=== PATIENT | male | born 1955 | race Caucasian/White ===

== ENCOUNTER 2017-04-16 19:51 | Inpatient (IN) | payer MEDICARE ==
[~2017-04-16] VITALS: Ht 172.7 cm; Wt 68.0 kg
[2017-04-16 20:01] VITALS: BP 147/97
[2017-04-16 20:17] LABS: BASOPHILS % (AUTO) 0.5 % (0.0-2.0); EOSINOPHILS % (AUTO) 0.1 % (0.0-3.0); MEAN CORPUSCULAR HEMOGLOBIN 29.8 PG (27.0-31.0); MEAN CORPUSCULAR HGB CONC 31.6 G/DL (32.0-36.0); MEAN CORPUSCULAR VOLUME 94 FL (80-99); MEAN PLATELET VOLUME 5.8 FL (6.5-10.1); MONOCYTES % (AUTO) 7.1 % (1.0-10.0); NEUTROPHILS % (AUTO) 71.3 % (45.0-75.0); PLATELET COUNT 283 K/UL (150-450); RED BLOOD COUNT 4.12 M/UL (4.70-6.10); RED CELL DISTRIBUTION WIDTH 13.4 % (11.6-14.8); WHITE BLOOD COUNT 8.1 K/UL (4.8-10.8)
[2017-04-16 20:26] LABS: ANION GAP 11 mmol/L (5-15); CALCIUM 8.8 MG/DL (8.5-10.1); CARBON DIOXIDE 26 MMOL/L (21-32); CHLORIDE 97 MMOL/L (98-107); CREATININE 0.8 MG/DL (0.55-1.30); GLOMERULAR FILTRATION RATE > 60 mL/min (>60); INR 0.9 (0.9-1.1); POTASSIUM 3.9 MMOL/L (3.5-5.1); PROTHROMBIN TIME 9.6 SEC (9.30-11.50); SODIUM 134 MMOL/L (136-145)
[2017-04-16 20:40] LABS: ALANINE AMINOTRANSFERASE 29 U/L (12-78); ALBUMIN/GLOBULIN RATIO 1.2 (1.0-2.7); ASPARTATE AMINO TRANSFERASE 18 U/L (15-37); CKMB 0.5 NG/ML (0.0-3.6); TOTAL PROTEIN 6.9 G/DL (6.4-8.2)
[2017-04-16] MEDS ORDERED: Acetaminophen 500mg (ES) tab ORAL ONE (21:15)
[2017-04-16] MEDS ORDERED: Albuterol/Ipratropium 3ml neb HHN ONE (21:30)
--- NOTE | 2017-04-16 21:40 | Emergency Room Report ---
History of Present Illness General Chief Complaint: Chest Pain Source: Patient, EMS Present Illness HPI Patient is a 61-year-old male brought in by EMS after increased chest pain. Patient had gradual onset of symptoms. The patient onset of pain approximately 10-20 minutes prior to arrival. The patient reports having prior history of cardiac disease and states that he's had multiple stents placed in the past. He has prior history of COPD. Patient recently been hospitalized at [facility]. Patient was given aspirin as well as nitroglycerin by paramedics with improvement in his pain. Allergies: Coded Allergies: PENICILLINS (Verified Allergy, Unknown, 04/16/17) TRAMADOL (Verified Allergy, Unknown, 04/16/17) Patient History Past Medical History: see triage record Reviewed Nursing Documentation: PMH: Agreed, PSxH: Agreed Review of Systems All Other Systems: negative except mentioned in HPI Physical Exam Vital Signs Date Time Temp Pulse Resp B/P (MAP) Pulse Ox O2 Delivery O2 Flow Rate FiO2 04/16/17 19:49 98.1 73 12 147/97 97 Room Air 04/16/17 21:33 21 Sp02 EP Interpretation: reviewed, normal General Appearance: normal inspection, well appearing, no apparent distress, alert, GCS 15, non-toxic Head: atraumatic ENT: normal ENT inspection, hearing grossly normal, normal voice Neck: normal inspection, full range of motion, supple, no bony tend Respiratory: normal inspection, lungs clear, normal breath sounds, no respiratory distress, no retraction, no wheezing Cardiovascular #1: regular rate, rhythm, no edema Gastrointestinal: normal inspection, normal bowel sounds, non tender, soft, no guarding, no hernia Genitourinary: no CVA tenderness Musculoskeletal: normal inspection, back normal, normal range of motion Neurologic: normal inspection, alert, oriented x3, responsive, facility mechanic III-XII nml as tested, speech normal Psychiatric: normal inspection, judgement/insight normal, mood/affect normal Skin: normal inspection, normal color, no rash Medical Decision Making Diagnostic Impression: Primary Impression: Chest pain Additional Impressions: CAD (coronary artery disease) COPD (chronic obstructive pulmonary disease) ER Course Patient presented for chest pain. Differential diagnosis included but was not limited to acute coronary syndrome, pulmonary embolism, pneumonia, aortic dissection, shingles, pneumothorax, aortic dissection, esophageal rupture, pericarditis. Because of complexity of patient's case laboratory testing and imaging studies were ordered. EKG interpreted by me showed normal sinus rhythm 76 with multiple PAC. Patient was given Plavix, he is given nitroglycerin and an aspirin by paramedics. The patient has multiple risk factors for cardiac disease including smoking as well as prior coronary artery disease. The patient was discussed with Dr. Zackary Corona for panel admission. Labs Test 04/16/17 20:00 White Blood Count 8.1 K/UL (4.8-10.8) Red Blood Count 4.12 M/UL (4.70-6.10) Hemoglobin 12.3 G/DL (14.2-18.0) Hematocrit 38.8 % (42.0-52.0) Mean Corpuscular Volume 94 FL (80-99) Mean Corpuscular Hemoglobin 29.8 PG (27.0-31.0) Mean Corpuscular Hemoglobin Concent 31.6 G/DL (32.0-36.0) Red Cell Distribution Width 13.4 % (11.6-14.8) Platelet Count 283 K/UL (150-450) Mean Platelet Volume 5.8 FL (6.5-10.1) Neutrophils (%) (Auto) 71.3 % (45.0-75.0) Lymphocytes (%) (Auto) 21.0 % (20.0-45.0) Monocytes (%) (Auto) 7.1 % (1.0-10.0) Eosinophils (%) (Auto) 0.1 % (0.0-3.0) Basophils (%) (Auto) 0.5 % (0.0-2.0) Prothrombin Time 9.6 SEC (9.30-11.50) Prothromb Time International Ratio 0.9 (0.9-1.1) Activated Partial Thromboplast Time 26 SEC (23-33) D-Dimer 0.35 mg/L FEU (0.00-0.49) Sodium Level 134 MMOL/L (136-145) Potassium Level 3.9 MMOL/L (3.5-5.1) Chloride Level 97 MMOL/L (98-107) Carbon Dioxide Level 26 MMOL/L (21-32) Anion Gap 11 mmol/L (5-15) Blood Urea Nitrogen 12 mg/dL (7-18) Creatinine 0.8 MG/DL (0.55-1.30) Estimat Glomerular Filtration Rate > 60 mL/min (>60) Glucose Level 119 MG/DL (74-106) Calcium Level 8.8 MG/DL (8.5-10.1) Total Bilirubin 0.4 MG/DL (0.2-1.0) Aspartate Amino Transf (AST/SGOT) 18 U/L (15-37) Alanine Aminotransferase (ALT/SGPT) 29 U/L (12-78) Alkaline Phosphatase 55 U/L (46-116) Total Creatine Kinase 44 U/L (26-308) Creatine Kinase MB 0.5 NG/ML (0.0-3.6) Creatine Kinase MB Relative Index 1.1 Troponin I 0.000 ng/mL (0.000-0.056) Pro-B-Type Natriuretic Peptide 242 pg/mL (0-125) Total Protein 6.9 G/DL (6.4-8.2) Albumin 3.7 G/DL (3.4-5.0) Globulin 3.2 g/dL Albumin/Globulin Ratio 1.2 (1.0-2.7) EKG Diagnostic Results Rate: normal Rhythm: NSR ST Segments: no acute changes Chest X-Ray Diagnostic Results Chest X-Ray Diagnostic Results : Chest X-Ray Ordered: Yes # of Views/Limited/Complete: 1 View Indication: Chest Pain EP Interpretation: Yes PA Xray: Interpretation reviewed, by supervising MD Interpretation: no consolidation Impression: No acute disease Electronically Signed by: Electronically signed by Dr. Ambrose Castrejon M.D. Last Vital Signs Date Time Temp Pulse Resp B/P (MAP) Pulse Ox O2 Delivery O2 Flow Rate FiO2 04/16/17 21:33 77 24 Room Air 21 04/16/17 21:33 99 04/16/17 20:01 98.1 147/97 Status: unchanged Disposition: ADMITTED INPATIENT Condition: Serious Referrals: NOT CHOSEN IPA/,REFERRING (PCP) Ambrose Castrejon Apr 16, 2017 21:40
[2017-04-16] MEDS ORDERED: SERTRALINE HCL25 MG ORAL (22:19)
[2017-04-16] MEDS ORDERED: OMEPRAZOLE20 M3 ORAL (22:19)
[2017-04-16] MEDS ORDERED: IBUPROFEN600 MG ORAL (22:19)
[2017-04-16] MEDS ORDERED: PREDNISONE20 MG ORAL (22:26)
[2017-04-16] MEDS ORDERED: NORVASC5 MG ORAL (22:26)
[2017-04-16] MEDS ORDERED: METOPROLOL SUCC25 MG ORAL (22:26)
[2017-04-16] MEDS ORDERED: TRAZODONE HCL150 MG ORAL (22:26)
[2017-04-16] MEDS ORDERED: LIPITOR80 MG ORAL (22:26)
[2017-04-16] MEDS ORDERED: ALBUTEROL SULF8.5 GM INH (22:26)
[2017-04-16] MEDS ORDERED: NITROGLYCERIN0.4 MG SL (22:26)
[2017-04-16] MEDS ORDERED: LORATADINE10 M3 PO (22:26)
[2017-04-16] MEDS ORDERED: ACETAMINOPHEN325 M1 ORAL (22:26)
[2017-04-16] MEDS ORDERED: ASPIRIN81 MG ORAL (22:26)
[2017-04-16] MEDS ORDERED: ISOSORBIDE MONO20 MG PO (22:26)
[2017-04-16] MEDS ORDERED: RANEXA500 MG ORAL (22:26)
[2017-04-16 22:30] VITALS: BP 134/83
[2017-04-16] MEDS ORDERED: CYANOCOBALAMIN5 GM MC (22:36)
[2017-04-16] MEDS ORDERED: ADVAIR 250-501 EACH INH (22:36)
[2017-04-16] MEDS ORDERED: METHOCARBAMOL500 MG ORAL (22:36)
[2017-04-16] MEDS ORDERED: AZITHROMYC200 MG/5 M ORAL (22:36)
[2017-04-16] MEDS ORDERED: SYMBICORT 80-10.2 G1 IH (22:36)
[2017-04-16] MEDS ORDERED: ANECREAM5 GM TP (22:36)
[2017-04-16 23:13] VITALS: BP 148/93
[2017-04-17] VITALS: BP_SYST 134; BP_SYST 145; BP_DIAS 102
[2017-04-17 04:00] VITALS: BP 141/87
[2017-04-17] MEDS ORDERED: dilTIAZem HCl 25mg/5ml Inj IV PRN (05:45)
[2017-04-17] MEDS ORDERED: Enalaprilat 2.5mg/2ml Inj IV PRN (05:45)
[2017-04-17] MEDS ORDERED: Albuterol/Ipratropium 3ml neb HHN PRN (05:45)
[2017-04-17] MEDS ORDERED: Ketorolac 30mg Inj IV PRN (05:45)
[2017-04-17] MEDS ORDERED: Miralax 17gm pkt ORAL PRN (05:45)
--- NOTE | 2017-04-17 07:28 | Consultation ---
History of Present Illness General Date patient seen: Apr 17, 2017 Chief Complaint: Chest Pain Reason for Consultation: inpatient management Present Illness HPI 61-year-old male with hx of COPD HTN, CAD, stented CAD in [facility], brought in by EMS after increased chest pain with gradual onset of symptoms. Patient recently been hospitalized at [facility]. He given aspirin as well as nitroglycerin by paramedics with improvement in his pain. He is admitted to telemetry for ACS. Allergies: Coded Allergies: PENICILLINS (Verified Allergy, Unknown, 04/16/17) TRAMADOL (Verified Allergy, Unknown, 04/16/17) Medication History Scheduled Albuterol Sulfate* (Albuterol Sulfate Mdi*), 2 PUFF INH Q3H, (Reported) Amlodipine Besylate (Norvasc), 5 MG ORAL DAILY, (Reported) Aspirin* (Aspirin*), 81 MG ORAL DAILY, (Reported) Atorvastatin (Lipitor), 40 MG ORAL BEDTIME, (Reported) Azithromycin* (Azithromycin*), 250 MG ORAL DAILY, (Reported) Fluticasone/Salmeterol (Advair 250-50 Diskus), 1 PUFF INH EVERY 12 HOURS, ( Reported) Metoprolol Succinate* (Metoprolol Succinate*), 25 MG ORAL DAILY, (Reported) Omeprazole (Omeprazole), 20 MG ORAL DAILY, (Reported) Prednisone* (Prednisone*), 20 MG ORAL DAILY, (Reported) Ranolazine* (Ranexa*), 500 MG ORAL EVERY 12 HOURS, (Reported) Sertraline Hcl* (Sertraline Hcl*), 100 MG ORAL DAILY, (Reported) Trazodone* (Trazodone*), 100 MG ORAL BEDTIME, (Reported) Scheduled PRN Acetaminophen* (Acetaminophen 325MG Tablet*), 325 MG ORAL Q4H PRN for For Pain, (Reported) Ibuprofen* (Motrin*), 800 MG ORAL Q8H PRN for For Pain, (Reported) Methocarbamol* (Methocarbamol*), 500 MG ORAL TID PRN for For Pain, (Reported) Miscellaneous Medications Budesonide/Formoterol Fumarate (Symbicort 80-4.5 Mcg Inhaler), 1 PUFF IH, ( Reported) Cyanocobalamin (Vitamin B-12) (Cyanocobalamin), 5 GM MC, (Reported) Isosorbide Mononitrate (Isosorbide Mononitrate), 60 MG PO, (Reported) Lidocaine (Anecream), 5 GM TP, (Reported) Loratadine (Loratadine), 10 MG PO, (Reported) Nitroglycerin (Nitroglycerin), 0.4 MG SL, (Reported) Patient History Healthcare decision maker Resuscitation status Full Code Advanced Directive on File Past Medical/Surgical History Past Medical/Surgical History: (1) Stented coronary artery (2) COPD (chronic obstructive pulmonary disease) (3) CAD (coronary artery disease) Review of Systems Cardiovascular: Reports: chest pain Physical Exam General Appearance: WD/WN, mild distress Lines, tubes and drains: peripheral HEENT: normocephalic, atraumatic Neck: non-tender, normal alignment Respiratory/Chest: chest wall non-tender, lungs clear Cardiovascular/Chest: normal peripheral pulses, normal rate, regular rhythm Abdomen: normal bowel sounds, non tender Genitourinary/Rectal: normal genital exam Extremities: normal range of motion Last 24 Hour Vital Signs Date Time Temp Pulse Resp B/P (MAP) Pulse Ox O2 Delivery O2 Flow Rate FiO2 04/17/17 05:01 67 04/17/17 04:00 97.7 67 20 141/87 97 Room Air 21 04/17/17 00:00 97.7 60 20 145/102 96 Room Air 04/17/17 00:00 71 04/17/17 00:00 97.2 61 20 134/102 97 Room Air 04/16/17 23:30 98.1 75 24 148/93 99 Room Air 21 75 04/16/17 23:13 98.1 75 24 148/93 99 Room Air 21 75 04/16/17 22:30 98.2 69 19 134/83 96 Room Air 21 04/16/17 22:13 98.1 04/16/17 21:46 72 20 100 Room Air 21 04/16/17 21:33 77 24 Room Air 21 04/16/17 21:33 77 24 99 Room Air 21 04/16/17 20:02 75 26 Room Air 04/16/17 20:01 98.1 75 12 147/97 97 Room Air 04/16/17 19:49 98.1 73 12 147/97 97 Room Air Laboratory Tests Test 04/16/17 20:00 04/16/17 22:00 White Blood Count 8.1 K/UL (4.8-10.8) Red Blood Count 4.12 M/UL (4.70-6.10) L Hemoglobin 12.3 G/DL (14.2-18.0) L Hematocrit 38.8 % (42.0-52.0) L Mean Corpuscular Volume 94 FL (80-99) Mean Corpuscular Hemoglobin 29.8 PG (27.0-31.0) Mean Corpuscular Hemoglobin Concent 31.6 G/DL (32.0-36.0) L Red Cell Distribution Width 13.4 % (11.6-14.8) Platelet Count 283 K/UL (150-450) Mean Platelet Volume 5.8 FL (6.5-10.1) L Neutrophils (%) (Auto) 71.3 % (45.0-75.0) Lymphocytes (%) (Auto) 21.0 % (20.0-45.0) Monocytes (%) (Auto) 7.1 % (1.0-10.0) Eosinophils (%) (Auto) 0.1 % (0.0-3.0) Basophils (%) (Auto) 0.5 % (0.0-2.0) Prothrombin Time 9.6 SEC (9.30-11.50) Prothromb Time International Ratio 0.9 (0.9-1.1) Activated Partial Thromboplast Time 26 SEC (23-33) D-Dimer 0.35 mg/L FEU (0.00-0.49) Sodium Level 134 MMOL/L (136-145) L Potassium Level 3.9 MMOL/L (3.5-5.1) Chloride Level 97 MMOL/L (98-107) L Carbon Dioxide Level 26 MMOL/L (21-32) Anion Gap 11 mmol/L (5-15) Blood Urea Nitrogen 12 mg/dL (7-18) Creatinine 0.8 MG/DL (0.55-1.30) Estimat Glomerular Filtration Rate > 60 mL/min (>60) Glucose Level 119 MG/DL (74-106) H Calcium Level 8.8 MG/DL (8.5-10.1) Total Bilirubin 0.4 MG/DL (0.2-1.0) Aspartate Amino Transf (AST/SGOT) 18 U/L (15-37) Alanine Aminotransferase (ALT/SGPT) 29 U/L (12-78) Alkaline Phosphatase 55 U/L (46-116) Total Creatine Kinase 44 U/L (26-308) Creatine Kinase MB 0.5 NG/ML (0.0-3.6) Creatine Kinase MB Relative Index 1.1 Troponin I 0.000 ng/mL (0.000-0.056) 0.009 ng/mL (0.000-0.056) Pro-B-Type Natriuretic Peptide 242 pg/mL (0-125) H Total Protein 6.9 G/DL (6.4-8.2) Albumin 3.7 G/DL (3.4-5.0) Globulin 3.2 g/dL Albumin/Globulin Ratio 1.2 (1.0-2.7) Height (Feet): 5 Height (Inches): 8.00 Weight (Pounds): 150 Medications Current Medications Medications (Trade) Dose Ordered Sig/Jacinto Route PRN Reason Start Time Stop Time Status Last Admin Dose Admin Acetaminophen (Tylenol) 650 mg Q4H PRN ORAL FEVER 04/17/17 05:45 05/17/17 05:44 Albuterol/ Ipratropium (Albuterol/ Ipratropium) 3 ml EVERY 4 HOURS PRN HHN Shortness of Breath 04/17/17 05:45 04/22/17 05:44 Amlodipine Besylate (Norvasc) 5 mg DAILY ORAL 04/17/17 09:00 05/17/17 08:59 Aspirin (ASA) 162 mg DAILY ORAL 04/17/17 09:00 05/17/17 08:59 Atorvastatin Calcium (Lipitor) 40 mg BEDTIME ORAL 04/17/17 21:00 05/17/17 20:59 Diltiazem HCl (Cardizem) 10 mg EVERY HOUR PRN IV heart rate more than 120, 04/17/17 05:45 05/17/17 05:44 Enalaprilat (Vasotec) 2.5 mg EVERY 6 HOURS PRN IV sbp more than 160 04/17/17 05:45 05/17/17 05:44 Heparin Sodium (Porcine) (Heparin 5000 units/ml) 5,000 units EVERY 12 HOURS SUBQ 04/17/17 09:00 05/17/17 08:59 Ketorolac Tromethamine (Toradol 30mg) 30 mg Q6HR PRN IV moderate pain ( 4-6) 04/17/17 05:45 04/22/17 05:44 UNV Metoprolol Succinate (Toprol XL) 25 mg DAILY ORAL 04/17/17 09:00 05/17/17 08:59 Nitroglycerin (Ntg) 0.4 mg Every 5 Minutes PRN SL Prn Chest Pain 04/17/17 05:45 05/17/17 05:44 Ondansetron HCl (Zofran) 4 mg Q6H PRN IVP Nausea & Vomiting 04/17/17 05:45 05/17/17 05:44 Polyethylene Glycol (Miralax) 17 gm DAILYPRN PRN ORAL Constipation 04/17/17 05:45 05/17/17 05:44 Sertraline HCl (Zoloft) 100 mg DAILY ORAL 04/17/17 09:00 05/17/17 08:59 Temazepam (Restoril) 15 mg HSPRN PRN ORAL Insomnia 04/17/17 05:45 04/24/17 05:44 Trazodone HCl (Desyrel) 100 mg BEDTIME ORAL 04/17/17 21:00 05/17/17 20:59 Assessment/Plan Problem List: (1) ACS (acute coronary syndrome) ICD Codes: I24.9 - Acute ischemic heart disease, unspecified SNOMED: 579935969 (2) CAD (coronary artery disease) ICD Codes: I25.10 - Atherosclerotic heart disease of [place] coronary artery without angina pectoris SNOMED: 31316144 (3) COPD (chronic obstructive pulmonary disease) ICD Codes: J44.9 - Chronic obstructive pulmonary disease, unspecified SNOMED: 85588064 (4) Stented coronary artery ICD Codes: Z95.5 - Presence of coronary angioplasty implant and graft SNOMED: 67063565, 243080424 Assessment/Plan serial ekg, troponin, Echo cardio to see respiratory treatment for COPD Monitor BP BROCK NICHOLS Apr 17, 2017 07:28
[2017-04-17 08:00] VITALS: BP 157/100
[2017-04-17] MEDS ORDERED: Aspirin Baby 81mg ORAL SCH (09:00)
[2017-04-17] MEDS ORDERED: Metoprolol Succinate XL 25mg tab ORAL SCH (09:00)
--- NOTE | 2017-04-17 09:30 | Diagnostic Imaging Report ---
Indication: Shortness of breath Comparison: None Findings: Single view of the chest shows a normal cardiomediastinal silhouette. Pulmonary vasculature is normal. Lung are clear. Soft tissues and osseous structures are within normal limits. Impression: No acute chest disease
[2017-04-17] MEDS: Sertraline 50mg tab ORAL SCH (09:51)
[2017-04-17] MEDS: Heparin 5000 units/ml inj SUBQ SCH ×2 (09:53→19:57)
[2017-04-17] MEDS: Norco 5mg/325mg tab ORAL PRN ×2 (11:09→19:55)
[2017-04-17 12:00] VITALS: BP 135/93
--- NOTE | 2017-04-17 13:58 | General Progress Note ---
Progress Note Progress Note [id number] full note dictated ISIDRA CARLOS Apr 17, 2017 13:58
--- NOTE | 2017-04-17 14:46 | Cardiology Progress Note ---
Assessment/Plan Assessment/Plan The patient is seen and examined, full consult note is dictated. Objective Last 24 Hour Vital Signs Date Time Temp Pulse Resp B/P (MAP) Pulse Ox O2 Delivery O2 Flow Rate FiO2 04/17/17 12:08 97.5 04/17/17 12:00 97.9 79 20 135/93 96 Room Air 04/17/17 11:53 72 04/17/17 09:51 79 157/100 04/17/17 09:50 79 157/100 04/17/17 08:05 80 04/17/17 08:00 97.5 79 20 157/100 98 Room Air 04/17/17 05:01 67 04/17/17 04:00 97.7 67 20 141/87 97 Room Air 21 04/17/17 00:00 97.7 60 20 145/102 96 Room Air 04/17/17 00:00 71 04/17/17 00:00 97.2 61 20 134/102 97 Room Air 04/16/17 23:30 98.1 75 24 148/93 99 Room Air 21 75 04/16/17 23:13 98.1 75 24 148/93 99 Room Air 21 75 04/16/17 22:30 98.2 69 19 134/83 96 Room Air 21 04/16/17 22:13 98.1 04/16/17 21:46 72 20 100 Room Air 21 04/16/17 21:33 77 24 Room Air 21 04/16/17 21:33 77 24 99 Room Air 21 04/16/17 20:02 75 26 Room Air 04/16/17 20:01 98.1 75 12 147/97 97 Room Air 04/16/17 19:49 98.1 73 12 147/97 97 Room Air Laboratory Tests Test 04/16/17 20:00 04/16/17 22:00 04/17/17 08:55 White Blood Count 8.1 K/UL (4.8-10.8) Red Blood Count 4.12 M/UL (4.70-6.10) L Hemoglobin 12.3 G/DL (14.2-18.0) L Hematocrit 38.8 % (42.0-52.0) L Mean Corpuscular Volume 94 FL (80-99) Mean Corpuscular Hemoglobin 29.8 PG (27.0-31.0) Mean Corpuscular Hemoglobin Concent 31.6 G/DL (32.0-36.0) L Red Cell Distribution Width 13.4 % (11.6-14.8) Platelet Count 283 K/UL (150-450) Mean Platelet Volume 5.8 FL (6.5-10.1) L Neutrophils (%) (Auto) 71.3 % (45.0-75.0) Lymphocytes (%) (Auto) 21.0 % (20.0-45.0) Monocytes (%) (Auto) 7.1 % (1.0-10.0) Eosinophils (%) (Auto) 0.1 % (0.0-3.0) Basophils (%) (Auto) 0.5 % (0.0-2.0) Prothrombin Time 9.6 SEC (9.30-11.50) Prothromb Time International Ratio 0.9 (0.9-1.1) Activated Partial Thromboplast Time 26 SEC (23-33) D-Dimer 0.35 mg/L FEU (0.00-0.49) Sodium Level 134 MMOL/L (136-145) L Potassium Level 3.9 MMOL/L (3.5-5.1) Chloride Level 97 MMOL/L (98-107) L Carbon Dioxide Level 26 MMOL/L (21-32) Anion Gap 11 mmol/L (5-15) Blood Urea Nitrogen 12 mg/dL (7-18) Creatinine 0.8 MG/DL (0.55-1.30) Estimat Glomerular Filtration Rate > 60 mL/min (>60) Glucose Level 119 MG/DL (74-106) H Calcium Level 8.8 MG/DL (8.5-10.1) Total Bilirubin 0.4 MG/DL (0.2-1.0) Aspartate Amino Transf (AST/SGOT) 18 U/L (15-37) Alanine Aminotransferase (ALT/SGPT) 29 U/L (12-78) Alkaline Phosphatase 55 U/L (46-116) Total Creatine Kinase 44 U/L (26-308) Creatine Kinase MB 0.5 NG/ML (0.0-3.6) Creatine Kinase MB Relative Index 1.1 Troponin I 0.000 ng/mL (0.000-0.056) 0.009 ng/mL (0.000-0.056) 0.010 ng/mL (0.000-0.056) Pro-B-Type Natriuretic Peptide 242 pg/mL (0-125) H Total Protein 6.9 G/DL (6.4-8.2) Albumin 3.7 G/DL (3.4-5.0) Globulin 3.2 g/dL Albumin/Globulin Ratio 1.2 (1.0-2.7) RUBEN VEGA Apr 17, 2017 14:46
[2017-04-17 16:00] VITALS: BP 139/86
[2017-04-17] MEDS ORDERED: Flu Vaccine Quadrivalent 0.5ml IM ONE (16:30)
[2017-04-17] MEDS ORDERED: Pneumococcal Vaccine 25mcg/0.5ml IM ONE (16:30)
[2017-04-17 18:16] LABS: APPEARANCE,URINE CLEAR; KETONES,URINE NEGATIVE (NEGATIVE); LEUKOCYTE ESTERASE ,URINE NEGATIVE (NEGATIVE); NITRITE,URINE NEGATIVE (NEGATIVE); PH,URINE 7 (4.5-8.0); PROTEIN,URINE NEGATIVE (NEGATIVE); UROBILINOGEN,URINE NORMAL MG/DL (0.0-1.0)
[2017-04-17 18:26] LABS: RBC,URINE 0 /HPF (0 - 0); WBC,URINE 0-2 /HPF (0 - 0)
--- NOTE | 2017-04-17 19:45 | History and Physical Report ---
DATE OF ADMISSION: 04/16/2017 TIME SEEN: At 8 a.m. CONSULTANTS: 1. Zackary Corona D.O. 2. Bridgett Alonso M.D. 3. Tony Clarke M.D. CHIEF COMPLAINT: Chest pain and shortness of breath. BRIEF HISTORY: A 61-year-old male vising from [place]. Per family history, he has some chest pressure with little bit dizzy/short of breath. The patient came in with substernal chest pain came to [place] ER diagnosed with above ACS and chest pain status post stent and was admitted to telemetry for further care. Currently, calm and feeling little better/short of breath. No complaints. PAST MEDICAL HISTORY: Include hypertension, emphysema, and ruptured disk in lumbar. PAST SURGICAL HISTORY: Stent x10. MEDICATIONS: Include Lipitor, Desyrel, Norvasc, Toprol, Zoloft, aspirin, albuterol, nitroglycerin, Toradol, MiraLAX, and Zofran. ALLERGIES: Penicillin and tramadol. SOCIAL HISTORY: Positive for smoke. Occasional alcohol. No intravenous drug abuse. FAMILY HISTORY: Noncontributory. REVIEW OF SYSTEMS: Chest pain and short of breath. No nausea, vomiting, or diarrhea. PHYSICAL EXAMINATION: GENERAL: Calm in bed, oriented x3, in no acute distress. VITAL SIGNS: Show temperature is 97 degrees, pulse 67, respirations 20, and blood pressure 141/87. CARDIOVASCULAR: No murmur. LUNGS: Distant and clear. ABDOMEN: Bowel sounds are positive. Nontender and nondistended. EXTREMITIES: No cyanosis, clubbing, or edema. NEUROLOGICAL: The patient moves all extremities but slightly weak. LABORATORY DATA: Show hemoglobin 12.3, otherwise CBC is normal. BMP show sodium 134, chloride 97, and glucose 119. BNP is 242. INR is 3.9. PTT is 26. ASSESSMENT: 1. Chest pain. 2. Acute coronary syndrome status post stent. 3. Hyponatremia. 4. Anemia. 5. Hypertension. 6. Emphysema. PLAN: 1. Continue premedications. 2. OT, PT, and dietary evaluation. 3. Troponin q.8 x3. 4. EKG. 5. Pain control. 6. Resume home medications. 7. Blood pressure control. 8. Dr. Alonso, Dr. Clarke and Dr. Simeon to consult. Zackary Corona D.O. DR: JENNIFER JOB#: [id number] CC:
[2017-04-17] MEDS: Atorvastatin 80mg tab ORAL SCH (19:54)
[2017-04-17] MEDS: TraZODone 100mg tab ORAL SCH (19:54)
[2017-04-17 20:06] VITALS: BP 140/82
--- NOTE | 2017-04-18 | Consultation ---
DATE OF CONSULTATION: 04/17/2017 NEPHROLOGY CONSULTATION CONSULTING PHYSICIAN: Flavia Simeon M.D. REFERRING PHYSICIAN: Zackary Corona D.O. ATTENDING PHYSICIAN: Zackary Corona D.O. REASON FOR CONSULTATION: Hyponatremia. HISTORY OF PRESENT ILLNESS: The patient is an unfortunate 61-year-old male with past medical history significant for history of hypertension and history of CAD. Apparently, per patient, the patient has 11 stents in his heart. His first heart attack was in 1984. Apparently, the patient coded twice then and got to survive. 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 He was about I think 2 months ago at [place], [place]. He had chest pain and he had an another cardiac intervention. He moved to [place] and apparently 2 weeks ago was admitted in [facility] with chest pain, for which then he was given nitroglycerin and had a stress test, which was negative. The patient consequently was sent home, but apparently the patient had another episode of chest pain while he was drinking coffee in [facility]. He described his pain as a pressure-like pain, 8/10, was radiating to his jaw and to his left arm, was associated with shortness of breath and nausea. Denies any palpitation. The pain subsided with nitro, but not completely. The patient with this symptom presented to emergency room at [facility], was admitted, and I was called for management of renal disease and electrolyte imbalance. PAST SURGICAL HISTORY: History of multiple stent placements. ALLERGIES: He is allergic to penicillin and tramadol. SOCIAL HISTORY: He still smokes. He quit using drugs about 40 years ago. Denies any history of alcohol. HOME MEDICATIONS: 1. Albuterol and Atrovent p.r.n. shortness of breath. 2. Amlodipine 5 mg p.o. daily. 3. Aspirin 81 mg p.o. daily. 4. Atorvastatin 40 mg p.o. daily. 5. Metoprolol 25 mg p.o. daily. 6. Omeprazole 20 mg p.o. daily. 7. Prednisone 20 mg p.o. daily. 8. Ranexa 500 mg p.o. daily. 9. Sertraline 100 mg p.o. daily. 10. Trazodone 100 mg p.o. daily. 11. Ibuprofen 800 mg p.r.n. pain. 12. Methocarbamol 500 mg p.o. daily. FAMILY HISTORY: His mother at age of 19 from a massive heart attack. His father at the age of 40 from massive heart attack. REVIEW OF SYSTEMS: GENERAL: He complained of generalized weakness. Denied any fever, chills, or night sweats. HEAD AND NECK: Denies any dysphagia, odynophagia, blurry vision, headache, or neck stiffness. PULMONARY: Complained of shortness of breath. No cough. No sputum. CARDIOVASCULAR: He is still having chest pain. The chest pain now is 5/10, otherwise as above mentioned in HPI. GASTROINTESTINAL: Complained of nausea. No vomiting. No melena. No hematochezia. GENITOURINARY: Denies any dysuria, frequency, or hematuria. MUSCULOSKELETAL: Denies any weakness or numbness. PHYSICAL EXAMINATION: VITAL SIGNS: The patient had temperature of 97, pulse rate of 67, and blood pressure 141/87. HEAD AND NECK: No JVP. No LAD. No thyromegaly. HEENT: Extraocular movements intact. Pupils are reactive to light and accommodation. LUNGS: Clear to auscultation. CARDIAC: Regular rate and rhythm. S1 and S2. No murmur. No rub. ABDOMEN: Soft, nontender, and nondistended. EXTREMITIES: Trace edema. No clubbing. No cyanosis. LABORATORY AND DIAGNOSTIC DATA: The patient has sodium of 134, potassium 3.9, chloride 97, bicarbonate 26, BUN of 12, creatinine of 0.8, glucose of 119, and calcium of 8.8. AST of 18, ALT of 29, and alkaline phosphatase of 55. BNP of 243. Total protein of 6.2 and albumin of 3.7. There is no UA. ASSESSMENT: 1. Mild hyponatremia. 2. Acute coronary syndrome. 3. Uncontrolled hypertension, which at this time still is 157/100. 4. Chronic obstructive pulmonary disease. PLAN: Plan for the patient is to place the patient on free water restriction. Check the UA. Monitor renal function and electrolytes closely. I would increase amlodipine to 10 mg p.o. daily. I would monitor renal function and electrolytes closely at the end. I would like to thank, Dr. Zackary Corona, for allowing me to participate in the care of this patient. Flavia Simeon M.D. DR: CAROL JOB#: [id number] CC:
[2017-04-18 00:10] VITALS: BP 113/69
--- NOTE | 2017-04-18 01:45 | Consultation ---
DATE OF CONSULTATION: 04/17/2017 CARDIOLOGY CONSULTATION CONSULTING PHYSICIAN: Tony Clarke M.D. REFERRING PHYSICIAN: Zackary Corona M.D. REASON FOR CONSULTATION: Management of chest pain. HISTORY OF PRESENT ILLNESS: The patient is a very unfortunate 61-year-old gentleman with extensive history of coronary artery disease, status post multiple percutaneous coronary interventions including the one that occurred about two months ago apparently in a new [place] vessel, visiting his daughter in [place], came up with an episode of chest pain initially about a week ago when he was taken to [facility]. He underwent a treadmill/pharmacological/nuclear stress test, which was negative and he was discharged home. A week after his discharge, he started to have a pressure-like pain in the left precordial area while he was having a cup of coffee with radiation to the left arm and to the left side of the neck. This pain responded well to aspirin and nitroglycerin given by paramedics. Initial blood pressure at the time of arrival to the hospital was 147/97 mmHg, heart rate of 76. A 12-lead electrocardiogram was significant for no acute ischemic features, but single premature atrial and ventricular complexes. He states that he gets out of breath by walking about 2 to 3 blocks, which is relatively new. There is no however change in exercise tolerance acutely in the past couple of weeks. PAST MEDICAL HISTORY: 1. Coronary artery disease, status post multiple percutaneous coronary interventions in the past including one two months ago. 2. History of chronic obstructive pulmonary disease due to long-lasting tobacco use. PAST SURGICAL HISTORY: Angioplasty and stent placement. MEDICATIONS: List of medications include acetaminophen 325 mg q.4 h. p.r.n. pain, albuterol two puffs inhaler q.3 h. for shortness of breath, Norvasc 5 mg p.o. daily, aspirin 81 mg p.o. daily, Lipitor 40 mg p.o. daily at bedtime, azithromycin 250 mg daily, Symbicort 80/4.5 mcg inhaler one inhaled daily, cyanocobalamin 5 daily, Advair 250/50 one puff every 12 hours, Motrin 800 mg q.8 h. p.r.n. pain, isosorbide mononitrate 60 mg p.o. daily, lidocaine 5 g cream topical, loratadine 10 mg p.o. daily, methocarbamol 500 mg three times daily p.r.n. pain, metoprolol 25 mg daily, nitroglycerin 0.4 mg sublingual q.5 h. p.r.n. chest pain, omeprazole 20 mg p.o. daily, prednisone 20 mg p.o. daily, Ranexa 500 mg q.12 h., sertraline 100 mg p.o. daily, and trazodone 100 mg p.o. at bedtime. HABITS: Continues to smoke cigarettes, has been a heavy smoker. Denies any alcohol or illicit drug use. REVIEW OF SYSTEMS: HEENT: Denies any headache, diplopia, or blurred vision. CONSTITUTIONAL: Denies any fever, chills, night sweats, or weight loss. CARDIOVASCULAR: Denies any complaints of chest pain and shortness of breath as mentioned above. Denies any PND, orthopnea, leg swelling, syncope, or palpitations. PULMONARY: Denies any cough, hemoptysis, or wheezing. GASTROINTESTINAL: Denies any nausea, vomiting, diarrhea, constipation, abdominal pain, or GI bleed. GENITOURINARY: Denies any hematuria, dysuria, or incontinence. NEUROLOGY: Denies any motor dysfunction, sensory deficit, or altered speech. PHYSICAL EXAMINATION: VITAL SIGNS: Blood pressure is 147/97, respirations of 12, pulse of 73, temperature 98.1 degrees Fahrenheit, and O2 saturation 97% on room air. GENERAL: The patient is a very unfortunate 62-year-old gentleman, in no apparent respiratory distress. Alert and oriented x4. HEENT: Atraumatic and normocephalic. Anicteric. Pupils are equal, round, and reactive to light and accommodation. Extraocular muscles intact. NECK: JVP is about 8 to 10 cm. No carotid bruits. Carotid upstrokes 2+ bilaterally. CARDIOVASCULAR: Distant S1, S2. I do not appreciate any murmurs, gallops, or rubs. PMI is at fourth intercostal space in the midclavicular line. LUNGS: Diminished breath sounds in both lungs. ABDOMEN: Soft, nontender, and nondistended. No hepatosplenomegaly. Positive bowel sounds. EXTREMITIES: No evidence of edema, clubbing, or cyanosis. LABORATORY AND DIAGNOSTIC DATA: Laboratory findings, WBC was 8.1, hemoglobin 12.3, hematocrit 38.8, and platelet count 283,000. Sodium 134, potassium 3.9, chloride 97, bicarbonate 26, BUN of 12, creatinine 0.8, glucose is 119, and calcium is 8.8. Troponin I x3 negative. ProBNP was 242. CK-MB was 0.5. INR is 0.9. D-dimer is 0.35. A 12-lead electrocardiogram shows sinus rhythm with premature atrial and ventricular complexes, both single, no ST or T-wave abnormalities. Chest x-ray shows normal cardiac silhouette with somewhat hyperinflation of the lung, no evidence of heart failure. ASSESSMENT AND PLAN: The patient is a very unfortunate 61-year-old gentleman, who was seen in Cardiology consultation at the request of Dr. Zackary Corona. 1. Acute coronary syndrome. Chest pain is typical for ischemia with a distribution to the left part of the neck and left upper arm. He is at high risk for coronary artery disease given his history of CAD and multiple angioplasties and stent placements. The fact that this is his second hospitalization in the past week for chest pain regardless of the negative stress test, he ought to be undergoing left heart catheterization, coronary angiography to rule out obstructive coronary artery disease and normal nuclear stress study can occur in 10% of the patients with multivessel coronary artery disease, a phenomenon called balanced ischemia. We will try to transfer the patient to [facility] where the patient's attending physician also has privileges and he can follow the continuity of care. This will most likely happen on Wednesday morning. We will make the arrangement with the case liner of both hospitals and the cardiac catheterization laboratory at [facility]. In the meantime, the patient's atorvastatin needs to be optimized to 80 mg daily at bedtime. The patient will require to get loading dose of Plavix. We will continue with aspirin and maintenance dose of Plavix 75 mg daily. A 12-lead electrocardiogram currently does not show any evidence of ischemia, acute myocardial infarction is also ruled out. 2. History of coronary artery disease, status post multiple pulmonary coronary interventions. 3. History of chronic obstructive pulmonary disease. Dr. Alonso will follow on the Pulmonary Division. I would like to place a hold on ibuprofen as well. The total amount of time spent in the evaluation of this patient in the [facility] review of the old records and discussing the plan of care was 45 minutes. I would like to thank, Dr. Corona, for the courtesy of this consultation. Tony Clarke M.D. DR: Allan JOB#: [id number] CC:
[2017-04-18 04:30] VITALS: BP 114/68
[2017-04-18 08:27] VITALS: BP 122/76
[2017-04-18 08:31] LABS: BASOPHILS % (AUTO) 0.9 % (0.0-2.0); LYMPHOCYTES % (AUTO) 13.5 % (20.0-45.0); MEAN CORPUSCULAR HEMOGLOBIN 30.9 PG (27.0-31.0); MEAN CORPUSCULAR HGB CONC 32.9 G/DL (32.0-36.0); MEAN CORPUSCULAR VOLUME 94 FL (80-99); MEAN PLATELET VOLUME 6.3 FL (6.5-10.1); MONOCYTES % (AUTO) 9.1 % (1.0-10.0); NEUTROPHILS % (AUTO) 73.5 % (45.0-75.0); PLATELET COUNT 315 K/UL (150-450); RED BLOOD COUNT 4.62 M/UL (4.70-6.10); RED CELL DISTRIBUTION WIDTH 13.3 % (11.6-14.8); WHITE BLOOD COUNT 7.1 K/UL (4.8-10.8)
[2017-04-18] MEDS: Sertraline 50mg tab ORAL SCH (08:38)
[2017-04-18] MEDS: Aspirin Baby 81mg ORAL SCH (08:39)
[2017-04-18] MEDS: Heparin 5000 units/ml inj SUBQ SCH ×2 (08:40→20:35)
--- NOTE | 2017-04-18 08:50 | General Progress Note ---
Assessment/Plan Problem List: (1) COPD (chronic obstructive pulmonary disease) ICD Codes: J44.9 - Chronic obstructive pulmonary disease, unspecified SNOMED: 04607149 (2) CAD (coronary artery disease) ICD Codes: I25.10 - Atherosclerotic heart disease of [place] coronary artery without angina pectoris SNOMED: 38191465 (3) Chest pain ICD Codes: R07.9 - Chest pain, unspecified SNOMED: 43148539 (4) ACS (acute coronary syndrome) ICD Codes: I24.9 - Acute ischemic heart disease, unspecified SNOMED: 750993465 Status: stable, progressing, tolerating diet Assessment/Plan ot pt diet cbc bmp am possible cardio transfer for cath Subjective Constitutional: Reports: weakness Allergies: Coded Allergies: PENICILLINS (Verified Allergy, Unknown, 04/16/17) TRAMADOL (Verified Allergy, Unknown, 04/16/17) All Systems: reviewed and negative except above Subjective sl chest pain in bed Objective Last 24 Hour Vital Signs Date Time Temp Pulse Resp B/P (MAP) Pulse Ox O2 Delivery O2 Flow Rate FiO2 04/18/17 08:39 77 122/76 04/18/17 08:38 77 122/76 04/18/17 08:27 97.1 64 20 122/76 96 Room Air 04/18/17 07:45 71 18 Room Air 04/18/17 04:30 99.0 63 20 114/68 96 Room Air 04/18/17 04:00 66 04/18/17 00:10 97.3 65 20 113/69 97 Room Air 04/18/17 00:00 61 04/17/17 20:54 97.7 04/17/17 20:06 97.7 68 20 140/82 98 Room Air 04/17/17 20:00 62 04/17/17 19:56 62 20 Room Air 04/17/17 16:00 98.2 74 20 139/86 95 Room Air 04/17/17 15:39 66 04/17/17 12:00 97.9 79 20 135/93 96 Room Air 04/17/17 11:53 72 04/17/17 09:51 79 157/100 04/17/17 09:50 79 157/100 Laboratory Tests 04/17/17 08:55: Troponin I 0.010 04/17/17 16:30: Urine Color Pale yellow, Urine Appearance Clear, Urine pH 7, Urine Specific [place] 1.015, Urine Protein Negative, Urine Glucose (UA) Negative, Urine Ketones Negative, Urine Occult Blood Negative, Urine Nitrite Negative, Urine Bilirubin Negative, Urine Urobilinogen Normal, Urine Leukocyte Esterase Negative , Urine RBC 0, Urine WBC 0-2, Urine Squamous Epithelial Cells None, Urine Bacteria None 04/18/17 07:17: Troponin I [Pending], White Blood Count 7.1, Red Blood Count 4.62L, Hemoglobin 14.3, Hematocrit 43.4, Mean Corpuscular Volume 94, Mean Corpuscular Hemoglobin 30.9, Mean Corpuscular Hemoglobin Concent 32.9, Red Cell Distribution Width 13.3 , Platelet Count 315, Mean Platelet Volume 6.3L, Neutrophils (%) (Auto) 73.5, Lymphocytes (%) (Auto) 13.5L, Monocytes (%) (Auto) 9.1, Eosinophils (%) (Auto) 3.0, Basophils (%) (Auto) 0.9, Prothrombin Time [Pending], Prothromb Time International Ratio [Pending], Activated Partial Thromboplast Time [Pending], C- Reactive Protein, Quantitative [Pending], Triglycerides Level [Pending], Cholesterol Level [Pending], LDL Cholesterol [Pending], HDL Cholesterol [Pending ], Cholesterol/HDL Ratio [Pending], Thyroid Stimulating Hormone (TSH) [Pending] Height (Feet): 5 Height (Inches): 8.00 Weight (Pounds): 150 General Appearance: alert EENT: normal ENT inspection Neck: normal alignment Cardiovascular: normal peripheral pulses, normal rate, regular rhythm Respiratory/Chest: chest wall non-tender, lungs clear, normal breath sounds Abdomen: normal bowel sounds, non tender, soft Extremities: normal inspection Edema: no edema noted Arm (L), no edema noted Arm (R), no edema noted Leg (L), no edema noted Leg (R), no edema noted Pedal (L), no edema noted Pedal (R), no edema noted Generalized Neurologic: responsive, motor weakness Skin: normal pigmentation, warm/dry MAGDA BELLO Apr 18, 2017 08:50
[2017-04-18 08:53] LABS: INR 0.9 (0.9-1.1); PROTHROMBIN TIME 9.3 SEC (9.30-11.50)
[2017-04-18 08:58] LABS: CHOLESTEROL 163 MG/DL (< 200); CHOLESTEROL/HDL RATIO 2.9 (3.3-4.4); CRP QUANT 0.5 mg/dL (0.00-0.90); THYROID STIMULATING HORMONE 1.961 uiU/mL (0.360-3.740)
[2017-04-18] MEDS ORDERED: Metoprolol Succinate XL 25mg tab ORAL SCH (09:00)
--- NOTE | 2017-04-18 10:11 | Pulmonology Progress Note ---
Assessment/Plan Problems: (1) ACS (acute coronary syndrome) (2) CAD (coronary artery disease) (3) COPD (chronic obstructive pulmonary disease) (4) Stented coronary artery Assessment/Plan symptomatic treatment f/u by cardio might need higher level fo care. Respiratory treatment Subjective Interval Events: still episodes of chest pain Allergies: Coded Allergies: PENICILLINS (Verified Allergy, Unknown, 04/16/17) TRAMADOL (Verified Allergy, Unknown, 04/16/17) Objective Last 24 Hour Vital Signs Date Time Temp Pulse Resp B/P (MAP) Pulse Ox O2 Delivery O2 Flow Rate FiO2 04/18/17 08:39 77 122/76 04/18/17 08:38 77 122/76 04/18/17 08:27 97.1 64 20 122/76 96 Room Air 04/18/17 07:45 71 18 Room Air 04/18/17 04:30 99.0 63 20 114/68 96 Room Air 04/18/17 04:00 66 04/18/17 00:10 97.3 65 20 113/69 97 Room Air 04/18/17 00:00 61 04/17/17 20:54 97.7 04/17/17 20:06 97.7 68 20 140/82 98 Room Air 04/17/17 20:00 62 04/17/17 19:56 62 20 Room Air 04/17/17 16:00 98.2 74 20 139/86 95 Room Air 04/17/17 15:39 66 04/17/17 12:00 97.9 79 20 135/93 96 Room Air 04/17/17 11:53 72 Intake and Output 04/18/17 04/19/17 19:00 07:00 Intake Total 240 ml Balance 240 ml Intake Oral 240 ml General Appearance: WD/WN HEENT: normocephalic, atraumatic Respiratory/Chest: chest wall non-tender, lungs clear Abdomen: normal bowel sounds, soft, non tender Genitourinary: normal external genitalia Skin: no rash Microbiology Date/Time Source Procedure Growth Status 04/16/17 22:36 Rectum VRE Culture - Final NO VANCOMYCIN RESISTANT ENTEROCOCCUS ... Complete Laboratory Tests 04/17/17 16:30: Urine Color Pale yellow, Urine Appearance Clear, Urine pH 7, Urine Specific [place] 1.015, Urine Protein Negative, Urine Glucose (UA) Negative, Urine Ketones Negative, Urine Occult Blood Negative, Urine Nitrite Negative, Urine Bilirubin Negative, Urine Urobilinogen Normal, Urine Leukocyte Esterase Negative , Urine RBC 0, Urine WBC 0-2, Urine Squamous Epithelial Cells None, Urine Bacteria None 04/18/17 07:17: White Blood Count 7.1, Red Blood Count 4.62L, Hemoglobin 14.3, Hematocrit 43.4, Mean Corpuscular Volume 94, Mean Corpuscular Hemoglobin 30.9, Mean Corpuscular Hemoglobin Concent 32.9, Red Cell Distribution Width 13.3, Platelet Count 315, Mean Platelet Volume 6.3L, Neutrophils (%) (Auto) 73.5, Lymphocytes (%) (Auto) 13.5L, Monocytes (%) (Auto) 9.1, Eosinophils (%) (Auto) 3.0, Basophils (%) (Auto ) 0.9, Prothrombin Time 9.3, Prothromb Time International Ratio 0.9, Activated Partial Thromboplast Time 26, Troponin I 0.007, C-Reactive Protein, Quantitative 0.5, Triglycerides Level 98, Cholesterol Level 163, LDL Cholesterol 89, HDL Cholesterol 56, Cholesterol/HDL Ratio 2.9L, Thyroid Stimulating Hormone (TSH) 1.961 Current Medications Medications (Trade) Dose Ordered Sig/Jacinto Route PRN Reason Start Time Stop Time Status Last Admin Dose Admin Acetaminophen (Tylenol) 650 mg Q4H PRN ORAL FEVER 04/17/17 05:45 05/17/17 05:44 Acetaminophen/ Hydrocodone Bitart ([place] 5/325) 1 tab Q6H PRN ORAL Moderate Pain (Pain Scale 4-6) 04/17/17 11:00 04/24/17 10:59 04/17/17 19:55 Albuterol/ Ipratropium (Albuterol/ Ipratropium) 3 ml EVERY 4 HOURS PRN HHN Shortness of Breath 04/17/17 05:45 04/22/17 05:44 Amlodipine Besylate (Norvasc) 10 mg DAILY ORAL 04/18/17 09:00 05/18/17 08:59 04/18/17 08:39 Aspirin (ASA) 81 mg DAILY ORAL 04/18/17 09:00 05/18/17 08:59 04/18/17 08:39 Atorvastatin Calcium (Lipitor) 80 mg BEDTIME ORAL 04/17/17 21:00 05/17/17 20:59 04/17/17 19:54 Clopidogrel Bisulfate (Plavix) 75 mg DAILY ORAL 04/18/17 09:00 05/18/17 08:59 04/18/17 08:38 Diltiazem HCl (Cardizem) 10 mg EVERY HOUR PRN IV heart rate more than 120, 04/17/17 05:45 05/17/17 05:44 Enalaprilat (Vasotec) 2.5 mg EVERY 6 HOURS PRN IV sbp more than 160 04/17/17 05:45 05/17/17 05:44 Heparin Sodium (Porcine) (Heparin 5000 units/ml) 5,000 units EVERY 12 HOURS SUBQ 04/17/17 09:00 05/17/17 08:59 04/18/17 08:40 Metoprolol Succinate (Toprol XL) 50 mg DAILY ORAL 04/18/17 09:00 05/18/17 08:59 04/18/17 08:38 Nitroglycerin (Ntg) 0.4 mg Every 5 Minutes PRN SL Prn Chest Pain 04/17/17 05:45 05/17/17 05:44 Ondansetron HCl (Zofran) 4 mg Q6H PRN IVP Nausea & Vomiting 04/17/17 05:45 05/17/17 05:44 Polyethylene Glycol (Miralax) 17 gm DAILYPRN PRN ORAL Constipation 04/17/17 05:45 05/17/17 05:44 Sertraline HCl (Zoloft) 100 mg DAILY ORAL 04/17/17 09:00 05/17/17 08:59 04/18/17 08:38 Temazepam (Restoril) 15 mg HSPRN PRN ORAL Insomnia 04/17/17 05:45 04/24/17 05:44 Trazodone HCl (Desyrel) 100 mg BEDTIME ORAL 04/17/17 21:00 05/17/17 20:59 04/17/17 19:54 BROCK NICHOLS Apr 18, 2017 10:11
[2017-04-18 11:31] VITALS: BP 126/83
--- NOTE | 2017-04-18 13:32 | Nephrology Progress Note ---
Assessment/Plan Assessment 1. Mild hyponatremia. 2. Acute coronary syndrome. 3. Uncontrolled hypertension now is shikha 4. Chronic obstructive pulmonary disease. Plan plan to continue current meds monitoring renal function avoid any NSAID replace electrolyte as need it Subjective Constitutional: Reports: no symptoms HEENT: Reports: no symptoms Genitourinary: Reports: no symptoms Neurologic/Psychiatric: Reports: no symptoms Subjective alert and awake dines any sob,nausea or vomiting no acute events overnight Objective Objective Last 24 Hour Vital Signs Date Time Temp Pulse Resp B/P (MAP) Pulse Ox O2 Delivery O2 Flow Rate FiO2 04/18/17 12:00 66 04/18/17 11:31 97.7 61 20 126/83 97 Room Air 04/18/17 08:39 77 122/76 04/18/17 08:38 77 122/76 04/18/17 08:27 97.1 64 20 122/76 96 Room Air 04/18/17 08:00 74 04/18/17 07:45 71 18 Room Air 04/18/17 04:30 99.0 63 20 114/68 96 Room Air 04/18/17 04:00 66 04/18/17 00:10 97.3 65 20 113/69 97 Room Air 04/18/17 00:00 61 04/17/17 20:54 97.7 04/17/17 20:06 97.7 68 20 140/82 98 Room Air 04/17/17 20:00 62 04/17/17 19:56 62 20 Room Air 04/17/17 16:00 98.2 74 20 139/86 95 Room Air 04/17/17 15:39 66 Intake and Output 04/18/17 04/19/17 19:00 07:00 Intake Total 240 ml Output Total 650 ml Balance -410 ml Intake Oral 240 ml Output Urine Total 650 ml Laboratory Tests 04/17/17 16:30: Urine Color Pale yellow, Urine Appearance Clear, Urine pH 7, Urine Specific [place] 1.015, Urine Protein Negative, Urine Glucose (UA) Negative, Urine Ketones Negative, Urine Occult Blood Negative, Urine Nitrite Negative, Urine Bilirubin Negative, Urine Urobilinogen Normal, Urine Leukocyte Esterase Negative , Urine RBC 0, Urine WBC 0-2, Urine Squamous Epithelial Cells None, Urine Bacteria None 04/18/17 07:17: White Blood Count 7.1, Red Blood Count 4.62L, Hemoglobin 14.3, Hematocrit 43.4, Mean Corpuscular Volume 94, Mean Corpuscular Hemoglobin 30.9, Mean Corpuscular Hemoglobin Concent 32.9, Red Cell Distribution Width 13.3, Platelet Count 315, Mean Platelet Volume 6.3L, Neutrophils (%) (Auto) 73.5, Lymphocytes (%) (Auto) 13.5L, Monocytes (%) (Auto) 9.1, Eosinophils (%) (Auto) 3.0, Basophils (%) (Auto ) 0.9, Prothrombin Time 9.3, Prothromb Time International Ratio 0.9, Activated Partial Thromboplast Time 26, Troponin I 0.007, C-Reactive Protein, Quantitative 0.5, Triglycerides Level 98, Cholesterol Level 163, LDL Cholesterol 89, HDL Cholesterol 56, Cholesterol/HDL Ratio 2.9L, Thyroid Stimulating Hormone (TSH) 1.961 Height (Feet): 5 Height (Inches): 8.00 Weight (Pounds): 150 Objective HEAD AND NECK: No JVP. No LAD. No thyromegaly. HEENT: Extraocular movements intact. Pupils are reactive to light and accommodation. LUNGS: Clear to auscultation. CARDIAC: Regular rate and rhythm. S1 and S2. No murmur. No rub. ABDOMEN: Soft, nontender, and nondistended. EXTREMITIES: Trace edema. No clubbing. No cyanosis ISIDRA CARLOS Apr 18, 2017 13:32
[2017-04-18 15:42] VITALS: BP 129/68
--- NOTE | 2017-04-18 16:55 | Cardiology Progress Note ---
Assessment/Plan Assessment/Plan 1. Acute coronary syndrome. Chest pain is typical for ischemia, he ought to be undergoing left heart catheterization, coronary angiography to rule out obstructive coronary artery disease, normal nuclear stress study can occur in 10% of the patients with multivessel coronary artery disease due to balanced ischemia. We will try to transfer the patient to [facility] [place], disease case manager was informed on Wednesday. Continue ASA, plavix and statins. 2. History of coronary artery disease, status post multiple pulmonary coronary interventions. 3. History of chronic obstructive pulmonary disease. Subjective Subjective Sinus rhythm at 79. Transfer process is not yet initiated by the disease case manager. Objective Last 24 Hour Vital Signs Date Time Temp Pulse Resp B/P (MAP) Pulse Ox O2 Delivery O2 Flow Rate FiO2 04/18/17 15:42 98.1 96 20 129/68 96 Room Air 04/18/17 12:00 66 04/18/17 11:31 97.7 61 20 126/83 97 Room Air 04/18/17 08:39 77 122/76 04/18/17 08:38 77 122/76 04/18/17 08:27 97.1 64 20 122/76 96 Room Air 04/18/17 08:00 74 04/18/17 07:45 71 18 Room Air 04/18/17 04:30 99.0 63 20 114/68 96 Room Air 04/18/17 04:00 66 04/18/17 00:10 97.3 65 20 113/69 97 Room Air 04/18/17 00:00 61 04/17/17 20:54 97.7 04/17/17 20:06 97.7 68 20 140/82 98 Room Air 04/17/17 20:00 62 04/17/17 19:56 62 20 Room Air Intake and Output 04/18/17 04/19/17 18:59 06:59 Intake Total 710 ml Output Total 1250 ml Balance -540 ml Intake Oral 710 ml Output Urine Total 1250 ml 2D Echo: LVEF 55-60%, Moderate AR, grade I LVDD Laboratory Tests Test 04/18/17 07:17 White Blood Count 7.1 K/UL (4.8-10.8) Red Blood Count 4.62 M/UL (4.70-6.10) L Hemoglobin 14.3 G/DL (14.2-18.0) Hematocrit 43.4 % (42.0-52.0) Mean Corpuscular Volume 94 FL (80-99) Mean Corpuscular Hemoglobin 30.9 PG (27.0-31.0) Mean Corpuscular Hemoglobin Concent 32.9 G/DL (32.0-36.0) Red Cell Distribution Width 13.3 % (11.6-14.8) Platelet Count 315 K/UL (150-450) Mean Platelet Volume 6.3 FL (6.5-10.1) L Neutrophils (%) (Auto) 73.5 % (45.0-75.0) Lymphocytes (%) (Auto) 13.5 % (20.0-45.0) L Monocytes (%) (Auto) 9.1 % (1.0-10.0) Eosinophils (%) (Auto) 3.0 % (0.0-3.0) Basophils (%) (Auto) 0.9 % (0.0-2.0) Prothrombin Time 9.3 SEC (9.30-11.50) Prothromb Time International Ratio 0.9 (0.9-1.1) Activated Partial Thromboplast Time 26 SEC (23-33) Troponin I 0.007 ng/mL (0.000-0.056) C-Reactive Protein, Quantitative 0.5 mg/dL (0.00-0.90) Triglycerides Level 98 MG/DL (0-200) Cholesterol Level 163 MG/DL (< 200) LDL Cholesterol 89 mg/dL (<100) HDL Cholesterol 56 MG/DL (40-60) Cholesterol/HDL Ratio 2.9 (3.3-4.4) L Thyroid Stimulating Hormone (TSH) 1.961 uiU/mL (0.360-3.740) Microbiology Date/Time Source Procedure Growth Status 04/16/17 22:36 Rectum VRE Culture - Final NO VANCOMYCIN RESISTANT ENTEROCOCCUS ... Complete Objective GENERAL: The patient is a very unfortunate 62-year-old gentleman, in no apparent respiratory distress. Alert and oriented x4. HEENT: Atraumatic and normocephalic. Anicteric. Pupils are equal, round, and reactive to light and accommodation. Extraocular muscles intact. NECK: JVP is about 8 to 10 cm. No carotid bruits. Carotid upstrokes 2+ bilaterally. CARDIOVASCULAR: Distant S1, S2. I do not appreciate any murmurs, gallops, or rubs. PMI is at fourth intercostal space in the midclavicular line. LUNGS: Diminished breath sounds in both lungs. ABDOMEN: Soft, nontender, and nondistended. No hepatosplenomegaly. Positive bowel sounds. EXTREMITIES: No evidence of edema, clubbing, or cyanosis. RUBEN VEGA Apr 18, 2017 16:55
[2017-04-18 20:00] VITALS: BP 141/76
[2017-04-18] MEDS: TraZODone 100mg tab ORAL SCH (20:34)
[2017-04-18] MEDS: Atorvastatin 80mg tab ORAL SCH (20:34)
[2017-04-19] VITALS (11 sets, daily range): BP systolic 87–127; BP diastolic 56–92
[2017-04-19 07:17] LABS: BASOPHILS % (AUTO) 1.4 % (0.0-2.0); EOSINOPHILS % (AUTO) 5.5 % (0.0-3.0); LYMPHOCYTES % (AUTO) 29.1 % (20.0-45.0); MEAN CORPUSCULAR HEMOGLOBIN 31.4 PG (27.0-31.0); MEAN CORPUSCULAR HGB CONC 33.6 G/DL (32.0-36.0); MEAN CORPUSCULAR VOLUME 93 FL (80-99); MEAN PLATELET VOLUME 6.5 FL (6.5-10.1); MONOCYTES % (AUTO) 13.5 % (1.0-10.0); NEUTROPHILS % (AUTO) 50.6 % (45.0-75.0); PLATELET COUNT 294 K/UL (150-450); RED BLOOD COUNT 4.38 M/UL (4.70-6.10); RED CELL DISTRIBUTION WIDTH 13.5 % (11.6-14.8); WHITE BLOOD COUNT 4.6 K/UL (4.8-10.8)
[2017-04-19 07:34] LABS: ANION GAP 5 mmol/L (5-15); CALCIUM 9.2 MG/DL (8.5-10.1); CARBON DIOXIDE 28 MMOL/L (21-32); CHLORIDE 101 MMOL/L (98-107); GLOMERULAR FILTRATION RATE > 60 mL/min (>60); POTASSIUM 4.7 MMOL/L (3.5-5.1); SODIUM 134 MMOL/L (136-145)
--- NOTE | 2017-04-19 08:05 | Nephrology Progress Note ---
Assessment/Plan Assessment 1. Mild hyponatremia. 2. Acute coronary syndrome. 3. Uncontrolled hypertension now is shikha 4. Chronic obstructive pulmonary disease. Plan plan to continue current meds monitoring renal function avoid any NSAID replace electrolyte as need it Subjective Constitutional: Reports: no symptoms HEENT: Reports: no symptoms Genitourinary: Reports: no symptoms Neurologic/Psychiatric: Reports: no symptoms Subjective alert and awake no complaints no acute events overnight Objective Objective Last 24 Hour Vital Signs Date Time Temp Pulse Resp B/P (MAP) Pulse Ox O2 Delivery O2 Flow Rate FiO2 04/19/17 04:00 97.3 61 18 112/56 95 Room Air 04/19/17 04:00 60 04/19/17 00:00 61 04/19/17 00:00 97.5 60 20 100/61 95 Room Air 04/18/17 20:22 76 18 Room Air 04/18/17 20:00 68 04/18/17 20:00 97.7 64 20 141/76 96 Room Air 04/18/17 15:42 98.1 96 20 129/68 96 Room Air 04/18/17 12:00 66 04/18/17 11:31 97.7 61 20 126/83 97 Room Air 04/18/17 08:39 77 122/76 04/18/17 08:38 77 122/76 04/18/17 08:27 97.1 64 20 122/76 96 Room Air Laboratory Tests 04/19/17 05:40: White Blood Count 4.6L, Red Blood Count 4.38L, Hemoglobin 13.8L, Hematocrit 40.9L, Mean Corpuscular Volume 93, Mean Corpuscular Hemoglobin 31.4H, Mean Corpuscular Hemoglobin Concent 33.6, Red Cell Distribution Width 13.5, Platelet Count 294, Mean Platelet Volume 6.5, Neutrophils (%) (Auto) 50.6, Lymphocytes (% ) (Auto) 29.1, Monocytes (%) (Auto) 13.5H, Eosinophils (%) (Auto) 5.5H, Basophils (%) (Auto) 1.4, Sodium Level 134L, Potassium Level 4.7, Chloride Level 101, Carbon Dioxide Level 28, Anion Gap 5, Blood Urea Nitrogen 23H, Creatinine 1.0, Estimat Glomerular Filtration Rate > 60, Glucose Level 89, Calcium Level 9.2, Troponin I 0.003 Height (Feet): 5 Height (Inches): 8.00 Weight (Pounds): 150 Objective HEAD AND NECK: No JVP. No LAD. No thyromegaly. HEENT: Extraocular movements intact. Pupils are reactive to light and accommodation. LUNGS: Clear to auscultation. CARDIAC: Regular rate and rhythm. S1 and S2. No murmur. No rub. ABDOMEN: Soft, nontender, and nondistended. EXTREMITIES: Trace edema. No clubbing. No cyanosis ISIDRA CARLOS Apr 19, 2017 08:05
[2017-04-19] MEDS: Sertraline 50mg tab ORAL SCH (08:13)
[2017-04-19] MEDS: Metoprolol Succinate XL 100mg tab ORAL SCH (08:14)
[2017-04-19] MEDS: Norco 5mg/325mg tab ORAL PRN (08:14)
[2017-04-19] MEDS: Aspirin Baby 81mg ORAL SCH (09:00)
[2017-04-19] MEDS: Heparin 5000 units/ml inj SUBQ SCH ×2 (09:00→21:29)
[2017-04-19] MEDS: Morphine Sulfate 4mg/ml Inj IVP PRN (11:01)
--- NOTE | 2017-04-19 11:33 | Pulmonology Progress Note ---
Assessment/Plan Problems: (1) ACS (acute coronary syndrome) (2) CAD (coronary artery disease) (3) COPD (chronic obstructive pulmonary disease) (4) Stented coronary artery Assessment/Plan symptomatic treatment f/u by cardio might need higher level fo care. Respiratory treatment awaiting cardiac cath Subjective ROS Limited/Unobtainable: No Interval Events: still c/o chest pain Constitutional: Reports: no symptoms HEENT: Repors: other Allergies: Coded Allergies: PENICILLINS (Verified Allergy, Unknown, 04/16/17) TRAMADOL (Verified Allergy, Unknown, 04/16/17) Objective Last 24 Hour Vital Signs Date Time Temp Pulse Resp B/P (MAP) Pulse Ox O2 Delivery O2 Flow Rate FiO2 04/19/17 08:14 60 127/92 04/19/17 08:13 60 127/92 04/19/17 08:00 63 04/19/17 08:00 97.3 60 18 127/92 97 Room Air 04/19/17 07:00 64 18 Room Air 04/19/17 04:00 97.3 61 18 112/56 95 Room Air 04/19/17 04:00 60 04/19/17 00:00 61 04/19/17 00:00 97.5 60 20 100/61 95 Room Air 04/18/17 20:22 76 18 Room Air 04/18/17 20:00 68 04/18/17 20:00 97.7 64 20 141/76 96 Room Air 04/18/17 15:42 98.1 96 20 129/68 96 Room Air 04/18/17 12:00 66 04/18/17 11:31 97.7 61 20 126/83 97 Room Air General Appearance: WD/WN HEENT: normocephalic, atraumatic Respiratory/Chest: chest wall non-tender, lungs clear Cardiovascular: normal peripheral pulses, normal rate Abdomen: normal bowel sounds, soft, non tender, no organomegaly Extremities: no cyanosis Neurologic/Psychiatric: [employer]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 Complete Laboratory Tests 04/19/17 05:40: White Blood Count 4.6L, Red Blood Count 4.38L, Hemoglobin 13.8L, Hematocrit 40.9L, Mean Corpuscular Volume 93, Mean Corpuscular Hemoglobin 31.4H, Mean Corpuscular Hemoglobin Concent 33.6, Red Cell Distribution Width 13.5, Platelet Count 294, Mean Platelet Volume 6.5, Neutrophils (%) (Auto) 50.6, Lymphocytes (% ) (Auto) 29.1, Monocytes (%) (Auto) 13.5H, Eosinophils (%) (Auto) 5.5H, Basophils (%) (Auto) 1.4, Sodium Level 134L, Potassium Level 4.7, Chloride Level 101, Carbon Dioxide Level 28, Anion Gap 5, Blood Urea Nitrogen 23H, Creatinine 1.0, Estimat Glomerular Filtration Rate > 60, Glucose Level 89, Calcium Level 9.2, Troponin I 0.003 Current Medications Medications (Trade) Dose Ordered Sig/Jacinto Route PRN Reason Start Time Stop Time Status Last Admin Dose Admin Acetaminophen (Tylenol) 650 mg Q4H PRN ORAL FEVER 04/17/17 05:45 05/17/17 05:44 Acetaminophen/ Hydrocodone Bitart ([place] 5/325) 1 tab Q6H PRN ORAL Moderate Pain (Pain Scale 4-6) 04/17/17 11:00 04/24/17 10:59 04/19/17 08:14 Albuterol/ Ipratropium (Albuterol/ Ipratropium) 3 ml EVERY 4 HOURS PRN HHN Shortness of Breath 04/17/17 05:45 04/22/17 05:44 Amlodipine Besylate (Norvasc) 10 mg DAILY ORAL 04/18/17 09:00 05/18/17 08:59 04/19/17 08:13 Aspirin (ASA) 81 mg DAILY ORAL 04/18/17 09:00 05/18/17 08:59 04/18/17 08:39 Atorvastatin Calcium (Lipitor) 80 mg BEDTIME ORAL 04/17/17 21:00 05/17/17 20:59 04/18/17 20:34 Clopidogrel Bisulfate (Plavix) 75 mg DAILY ORAL 04/18/17 09:00 05/18/17 08:59 04/18/17 08:38 Diltiazem HCl (Cardizem) 10 mg EVERY HOUR PRN IV heart rate more than 120, 04/17/17 05:45 05/17/17 05:44 Enalaprilat (Vasotec) 2.5 mg EVERY 6 HOURS PRN IV sbp more than 160 04/17/17 05:45 05/17/17 05:44 Heparin Sodium (Porcine) (Heparin 5000 units/ml) 5,000 units EVERY 12 HOURS SUBQ 04/17/17 09:00 05/17/17 08:59 04/18/17 20:35 Metoprolol Succinate (Toprol XL) 100 mg DAILY ORAL 04/19/17 09:00 05/19/17 08:59 04/19/17 08:14 Morphine Sulfate (Morphine Sulfate) 2 mg Q4H PRN IVP Severe Pain (Pain Scale 7-10) 04/19/17 10:30 04/26/17 10:29 04/19/17 11:01 Nitroglycerin (Ntg) 0.4 mg Every 5 Minutes PRN SL Prn Chest Pain 04/17/17 05:45 05/17/17 05:44 Ondansetron HCl (Zofran) 4 mg Q6H PRN IVP Nausea & Vomiting 04/17/17 05:45 05/17/17 05:44 Polyethylene Glycol (Miralax) 17 gm DAILYPRN PRN ORAL Constipation 04/17/17 05:45 05/17/17 05:44 Sertraline HCl (Zoloft) 100 mg DAILY ORAL 04/17/17 09:00 05/17/17 08:59 04/19/17 08:13 Temazepam (Restoril) 15 mg HSPRN PRN ORAL Insomnia 04/17/17 05:45 04/24/17 05:44 Trazodone HCl (Desyrel) 100 mg BEDTIME ORAL 04/17/17 21:00 05/17/17 20:59 04/18/17 20:34 BROCK NICHOLS Apr 19, 2017 11:33
--- NOTE | 2017-04-19 13:12 | General Progress Note ---
Assessment/Plan Problem List: (1) COPD (chronic obstructive pulmonary disease) ICD Codes: J44.9 - Chronic obstructive pulmonary disease, unspecified SNOMED: 16489066 (2) CAD (coronary artery disease) ICD Codes: I25.10 - Atherosclerotic heart disease of [place] coronary artery without angina pectoris SNOMED: 13590179 (3) Chest pain ICD Codes: R07.9 - Chest pain, unspecified SNOMED: 74192225 (4) ACS (acute coronary syndrome) ICD Codes: I24.9 - Acute ischemic heart disease, unspecified SNOMED: 712491153 Status: stable, progressing, tolerating diet Assessment/Plan ot pt diet cbc bmp am possible cardio transfer for cath Subjective Constitutional: Reports: weakness Allergies: Coded Allergies: PENICILLINS (Verified Allergy, Unknown, 04/16/17) TRAMADOL (Verified Allergy, Unknown, 04/16/17) All Systems: reviewed and negative except above Subjective sl chest pain in bed Objective Last 24 Hour Vital Signs Date Time Temp Pulse Resp B/P (MAP) Pulse Ox O2 Delivery O2 Flow Rate FiO2 04/19/17 08:14 60 127/92 04/19/17 08:13 60 127/92 04/19/17 08:00 63 04/19/17 08:00 97.3 60 18 127/92 97 Room Air 04/19/17 07:00 64 18 Room Air 04/19/17 04:00 97.3 61 18 112/56 95 Room Air 04/19/17 04:00 60 04/19/17 00:00 61 04/19/17 00:00 97.5 60 20 100/61 95 Room Air 04/18/17 20:22 76 18 Room Air 04/18/17 20:00 68 04/18/17 20:00 97.7 64 20 141/76 96 Room Air 04/18/17 15:42 98.1 96 20 129/68 96 Room Air Laboratory Tests 04/19/17 05:40: White Blood Count 4.6L, Red Blood Count 4.38L, Hemoglobin 13.8L, Hematocrit 40.9L, Mean Corpuscular Volume 93, Mean Corpuscular Hemoglobin 31.4H, Mean Corpuscular Hemoglobin Concent 33.6, Red Cell Distribution Width 13.5, Platelet Count 294, Mean Platelet Volume 6.5, Neutrophils (%) (Auto) 50.6, Lymphocytes (% ) (Auto) 29.1, Monocytes (%) (Auto) 13.5H, Eosinophils (%) (Auto) 5.5H, Basophils (%) (Auto) 1.4, Sodium Level 134L, Potassium Level 4.7, Chloride Level 101, Carbon Dioxide Level 28, Anion Gap 5, Blood Urea Nitrogen 23H, Creatinine 1.0, Estimat Glomerular Filtration Rate > 60, Glucose Level 89, Calcium Level 9.2, Troponin I 0.003 Height (Feet): 5 Height (Inches): 8.00 Weight (Pounds): 150 General Appearance: alert EENT: normal ENT inspection Neck: normal alignment Cardiovascular: normal peripheral pulses, normal rate, regular rhythm Respiratory/Chest: chest wall non-tender, lungs clear, normal breath sounds Abdomen: normal bowel sounds, non tender, soft Extremities: normal inspection Edema: no edema noted Arm (L), no edema noted Arm (R), no edema noted Leg (L), no edema noted Leg (R), no edema noted Pedal (L), no edema noted Pedal (R), no edema noted Generalized Neurologic: responsive, motor weakness Skin: normal pigmentation, warm/dry MAGDA BELLO Apr 19, 2017 13:11
[2017-04-19] MEDS: Nitroglycerin Subl 0.4mg tab SL PRN ×2 (15:47→15:53)
[2017-04-19] MEDS ORDERED: Sodium Chloride 500ML 500 ML IVPB ONE (17:00)
[2017-04-19] MEDS: Atorvastatin 80mg tab ORAL SCH (21:28)
[2017-04-19] MEDS: TraZODone 100mg tab ORAL SCH (21:28)
--- NOTE | 2017-04-19 23:11 | Cardiology Progress Note ---
Assessment/Plan Assessment/Plan 1. Acute coronary syndrome. Chest pain is typical for ischemia, he ought to be undergoing left heart catheterization, coronary angiography is being scheduled in a hospital with laboratory apparatus [facility] amenities. Continue ASA, plavix, metoprolol and statins in the meantime. 2. History of coronary artery disease, status post multiple coronary artery interventions. 3. History of chronic obstructive pulmonary disease. Subjective Subjective Sinus rhythm at 60. Transfer is pending based on the contract with the receiving hospital. Objective Last 24 Hour Vital Signs Date Time Temp Pulse Resp B/P (MAP) Pulse Ox O2 Delivery O2 Flow Rate FiO2 04/19/17 20:27 98.2 65 18 102/59 98 Room Air 04/19/17 19:30 72 18 Room Air 21 04/19/17 17:30 65 20 107/63 98 Nasal Cannula 2.0 04/19/17 16:30 63 101/59 98 Nasal Cannula 2.0 04/19/17 16:25 69 20 99 Nasal Cannula 2.0 28 04/19/17 16:20 76 20 97 Nasal Cannula 2.0 28 04/19/17 16:00 65 88/59 98 Nasal Cannula 2.0 04/19/17 16:00 64 04/19/17 15:58 65 87/56 98 Nasal Cannula 2.0 04/19/17 15:53 126/70 04/19/17 15:53 76 126/70 98 Nasal Cannula 2.0 04/19/17 15:47 62 118/75 98 Nasal Cannula 2.0 04/19/17 15:47 118/75 04/19/17 12:00 97.5 62 20 107/69 98 Room Air 04/19/17 12:00 55 04/19/17 08:14 60 127/92 04/19/17 08:13 60 127/92 04/19/17 08:00 63 04/19/17 08:00 97.3 60 18 127/92 97 Room Air 04/19/17 07:00 64 18 Room Air 04/19/17 04:00 97.3 61 18 112/56 95 Room Air 04/19/17 04:00 60 04/19/17 00:00 61 04/19/17 00:00 97.5 60 20 100/61 95 Room Air Intake and Output 04/19/17 04/20/17 19:00 07:00 Intake Total 300 ml Balance 300 ml Intake Oral 300 ml # Voids 3 2D Echo: LVEF 55-60%, Moderate AR, grade I LVDD Laboratory Tests Test 04/19/17 05:40 White Blood Count 4.6 K/UL (4.8-10.8) L Red Blood Count 4.38 M/UL (4.70-6.10) L Hemoglobin 13.8 G/DL (14.2-18.0) L Hematocrit 40.9 % (42.0-52.0) L Mean Corpuscular Volume 93 FL (80-99) Mean Corpuscular Hemoglobin 31.4 PG (27.0-31.0) H Mean Corpuscular Hemoglobin Concent 33.6 G/DL (32.0-36.0) Red Cell Distribution Width 13.5 % (11.6-14.8) Platelet Count 294 K/UL (150-450) Mean Platelet Volume 6.5 FL (6.5-10.1) Neutrophils (%) (Auto) 50.6 % (45.0-75.0) Lymphocytes (%) (Auto) 29.1 % (20.0-45.0) Monocytes (%) (Auto) 13.5 % (1.0-10.0) H Eosinophils (%) (Auto) 5.5 % (0.0-3.0) H Basophils (%) (Auto) 1.4 % (0.0-2.0) Sodium Level 134 MMOL/L (136-145) L Potassium Level 4.7 MMOL/L (3.5-5.1) Chloride Level 101 MMOL/L (98-107) Carbon Dioxide Level 28 MMOL/L (21-32) Anion Gap 5 mmol/L (5-15) Blood Urea Nitrogen 23 mg/dL (7-18) H Creatinine 1.0 MG/DL (0.55-1.30) Estimat Glomerular Filtration Rate > 60 mL/min (>60) Glucose Level 89 MG/DL (74-106) Calcium Level 9.2 MG/DL (8.5-10.1) Troponin I 0.003 ng/mL (0.000-0.056) Objective GENERAL: The patient is a very unfortunate 62-year-old gentleman, in no apparent respiratory distress. Alert and oriented x4. HEENT: Atraumatic and normocephalic. Anicteric. Pupils are equal, round, and reactive to light and accommodation. Extraocular muscles intact. NECK: JVP is about 8 to 10 cm. No carotid bruits. Carotid upstrokes 2+ bilaterally. CARDIOVASCULAR: Distant S1, S2. I do not appreciate any murmurs, gallops, or rubs. PMI is at fourth intercostal space in the midclavicular line. LUNGS: Diminished breath sounds in both lungs. ABDOMEN: Soft, nontender, and nondistended. No hepatosplenomegaly. Positive bowel sounds. EXTREMITIES: No evidence of edema, clubbing, or cyanosis. RUBEN VEGA Apr 19, 2017 23:11
[2017-04-20 00:31] VITALS: BP 138/67
[2017-04-20] MEDS: Morphine Sulfate 4mg/ml Inj IVP PRN ×2 (04:08→11:19)
[2017-04-20 04:15] VITALS: BP 126/67
[2017-04-20] MEDS: Norco 5mg/325mg tab ORAL PRN (06:00)
[2017-04-20 06:36] LABS: BASOPHILS % (AUTO) 1.2 % (0.0-2.0); EOSINOPHILS % (AUTO) 5.5 % (0.0-3.0); LYMPHOCYTES % (AUTO) 26.4 % (20.0-45.0); MEAN CORPUSCULAR HEMOGLOBIN 31.3 PG (27.0-31.0); MEAN CORPUSCULAR HGB CONC 33.3 G/DL (32.0-36.0); MEAN CORPUSCULAR VOLUME 94 FL (80-99); MEAN PLATELET VOLUME 6.3 FL (6.5-10.1); MONOCYTES % (AUTO) 11.2 % (1.0-10.0); NEUTROPHILS % (AUTO) 55.7 % (45.0-75.0); PLATELET COUNT 306 K/UL (150-450); RED BLOOD COUNT 4.58 M/UL (4.70-6.10); RED CELL DISTRIBUTION WIDTH 13.1 % (11.6-14.8); WHITE BLOOD COUNT 5.3 K/UL (4.8-10.8)
[2017-04-20 07:14] LABS: ANION GAP 3 mmol/L (5-15); CALCIUM 9.2 MG/DL (8.5-10.1); CARBON DIOXIDE 32 MMOL/L (21-32); CHLORIDE 102 MMOL/L (98-107); GLOMERULAR FILTRATION RATE > 60 mL/min (>60); POTASSIUM 4.7 MMOL/L (3.5-5.1); SODIUM 137 MMOL/L (136-145)
[2017-04-20 08:00] VITALS: BP 101/59
[2017-04-20] MEDS: Metoprolol Succinate XL 100mg tab ORAL SCH (09:00)
[2017-04-20] MEDS: Aspirin Baby 81mg ORAL SCH (10:00)
[2017-04-20] MEDS: Sertraline 50mg tab ORAL SCH (10:04)
[2017-04-20 12:00] VITALS: BP 98/62
--- NOTE | 2017-04-20 14:16 | Pulmonology Progress Note ---
Assessment/Plan Problems: (1) ACS (acute coronary syndrome) (2) CAD (coronary artery disease) (3) COPD (chronic obstructive pulmonary disease) (4) Stented coronary artery Assessment/Plan symptomatic treatment f/u by cardio might need higher level fo care. Respiratory treatment awaiting cardiac cath transfer has been approved. Pt will be going to [facility]. Subjective ROS Limited/Unobtainable: No Constitutional: Reports: no symptoms HEENT: Repors: no symptoms Respiratory: Reports: no symptoms Allergies: Coded Allergies: PENICILLINS (Verified Allergy, Unknown, 04/16/17) TRAMADOL (Verified Allergy, Unknown, 04/16/17) Objective Last 24 Hour Vital Signs Date Time Temp Pulse Resp B/P (MAP) Pulse Ox O2 Delivery O2 Flow Rate FiO2 04/20/17 12:00 55 04/20/17 12:00 97.0 52 21 98/62 98 Room Air 04/20/17 09:00 57 101/59 04/20/17 09:00 57 101/59 04/20/17 08:47 Nasal Cannula 2.0 28 04/20/17 08:47 98 Nasal Cannula 2.0 28 04/20/17 08:47 57 16 Nasal Cannula 2.0 28 04/20/17 08:00 57 04/20/17 08:00 97.2 56 20 101/59 99 Room Air 04/20/17 04:51 55 04/20/17 04:15 94.6 55 18 126/67 98 Room Air 04/20/17 00:31 96.6 59 18 138/67 99 Room Air 04/19/17 23:47 55 04/19/17 20:27 98.2 65 18 102/59 98 Room Air 04/19/17 19:53 63 04/19/17 19:30 72 18 Room Air 21 04/19/17 17:30 65 20 107/63 98 Nasal Cannula 2.0 04/19/17 16:30 63 101/59 98 Nasal Cannula 2.0 04/19/17 16:25 69 20 99 Nasal Cannula 2.0 28 04/19/17 16:20 76 20 97 Nasal Cannula 2.0 28 04/19/17 16:00 65 88/59 98 Nasal Cannula 2.0 04/19/17 16:00 64 04/19/17 15:58 65 87/56 98 Nasal Cannula 2.0 04/19/17 15:53 126/70 04/19/17 15:53 76 126/70 98 Nasal Cannula 2.0 04/19/17 15:47 62 118/75 98 Nasal Cannula 2.0 04/19/17 15:47 118/75 Intake and Output 04/20/17 04/21/17 19:00 07:00 # Bowel Movements 1 General Appearance: WD/WN HEENT: normocephalic, atraumatic Respiratory/Chest: chest wall non-tender, lungs clear Cardiovascular: normal peripheral pulses, normal rate Abdomen: normal bowel sounds, soft, non tender Laboratory Tests 04/20/17 04:40: White Blood Count 5.3, Red Blood Count 4.58L, Hemoglobin 14.3, Hematocrit 43.1, Mean Corpuscular Volume 94, Mean Corpuscular Hemoglobin 31.3H, Mean Corpuscular Hemoglobin Concent 33.3, Red Cell Distribution Width 13.1, Platelet Count 306, Mean Platelet Volume 6.3L, Neutrophils (%) (Auto) 55.7, Lymphocytes (%) (Auto) 26.4, Monocytes (%) (Auto) 11.2H, Eosinophils (%) (Auto) 5.5H, Basophils (%) ( Auto) 1.2, Sodium Level 137, Potassium Level 4.7, Chloride Level 102, Carbon Dioxide Level 32, Anion Gap 3L, Blood Urea Nitrogen 20H, Creatinine 1.0, Estimat Glomerular Filtration Rate > 60, Glucose Level 100, Calcium Level 9.2 Current Medications Medications (Trade) Dose Ordered Sig/Jacinto Route PRN Reason Start Time Stop Time Status Last Admin Dose Admin Acetaminophen (Tylenol) 650 mg Q4H PRN ORAL FEVER 04/17/17 05:45 05/17/17 05:44 Acetaminophen/ Hydrocodone Bitart ([place] 5/325) 1 tab Q6H PRN ORAL Moderate Pain (Pain Scale 4-6) 04/17/17 11:00 04/24/17 10:59 04/20/17 06:00 Albuterol/ Ipratropium (Albuterol/ Ipratropium) 3 ml EVERY 4 HOURS PRN HHN Shortness of Breath 04/17/17 05:45 04/22/17 05:44 04/19/17 16:23 Amlodipine Besylate (Norvasc) 10 mg DAILY ORAL 04/18/17 09:00 05/18/17 08:59 04/19/17 08:13 Aspirin (ASA) 81 mg DAILY ORAL 04/18/17 09:00 05/18/17 08:59 04/20/17 10:00 Atorvastatin Calcium (Lipitor) 80 mg BEDTIME ORAL 04/17/17 21:00 05/17/17 20:59 04/19/17 21:28 Clopidogrel Bisulfate (Plavix) 75 mg DAILY ORAL 04/18/17 09:00 05/18/17 08:59 04/18/17 08:38 Diltiazem HCl (Cardizem) 10 mg EVERY HOUR PRN IV heart rate more than 120, 04/17/17 05:45 05/17/17 05:44 Enalaprilat (Vasotec) 2.5 mg EVERY 6 HOURS PRN IV sbp more than 160 04/17/17 05:45 05/17/17 05:44 Heparin Sodium (Porcine) (Heparin 5000 units/ml) 5,000 units EVERY 12 HOURS SUBQ 04/17/17 09:00 05/17/17 08:59 04/19/17 21:29 Metoprolol Succinate (Toprol XL) 100 mg DAILY ORAL 04/19/17 09:00 05/19/17 08:59 04/19/17 08:14 Morphine Sulfate (Morphine Sulfate) 2 mg Q4H PRN IVP Severe Pain (Pain Scale 7-10) 04/19/17 10:30 04/26/17 10:29 04/20/17 11:19 Ondansetron HCl (Zofran) 4 mg Q6H PRN IVP Nausea & Vomiting 04/17/17 05:45 05/17/17 05:44 Polyethylene Glycol (Miralax) 17 gm DAILYPRN PRN ORAL Constipation 04/17/17 05:45 05/17/17 05:44 Sertraline HCl (Zoloft) 100 mg DAILY ORAL 04/17/17 09:00 05/17/17 08:59 04/20/17 10:04 Temazepam (Restoril) 15 mg HSPRN PRN ORAL Insomnia 04/17/17 05:45 04/24/17 05:44 Trazodone HCl (Desyrel) 100 mg BEDTIME ORAL 04/17/17 21:00 05/17/17 20:59 04/19/17 21:28 BROCK NICHOLS Apr 20, 2017 14:16
--- NOTE | 2017-04-20 14:24 | Nephrology Progress Note ---
Assessment/Plan Assessment 1. Mild hyponatremia. 2. Acute coronary syndrome. 3. Uncontrolled hypertension now is shikha 4. Chronic obstructive pulmonary disease. Plan plan to continue current meds monitoring renal function avoid any NSAID replace electrolyte as need it Subjective Constitutional: Reports: no symptoms HEENT: Reports: no symptoms Genitourinary: Reports: no symptoms Neurologic/Psychiatric: Reports: no symptoms Subjective alert and awake no complaints no acute events overnight Objective Objective Last 24 Hour Vital Signs Date Time Temp Pulse Resp B/P (MAP) Pulse Ox O2 Delivery O2 Flow Rate FiO2 04/20/17 12:00 55 04/20/17 12:00 97.0 52 21 98/62 98 Room Air 04/20/17 09:00 57 101/59 04/20/17 09:00 57 101/59 04/20/17 08:47 Nasal Cannula 2.0 28 04/20/17 08:47 98 Nasal Cannula 2.0 28 04/20/17 08:47 57 16 Nasal Cannula 2.0 28 04/20/17 08:00 57 04/20/17 08:00 97.2 56 20 101/59 99 Room Air 04/20/17 04:51 55 04/20/17 04:15 94.6 55 18 126/67 98 Room Air 04/20/17 00:31 96.6 59 18 138/67 99 Room Air 04/19/17 23:47 55 04/19/17 20:27 98.2 65 18 102/59 98 Room Air 04/19/17 19:53 63 04/19/17 19:30 72 18 Room Air 21 04/19/17 17:30 65 20 107/63 98 Nasal Cannula 2.0 04/19/17 16:30 63 101/59 98 Nasal Cannula 2.0 04/19/17 16:25 69 20 99 Nasal Cannula 2.0 28 04/19/17 16:20 76 20 97 Nasal Cannula 2.0 28 04/19/17 16:00 65 88/59 98 Nasal Cannula 2.0 04/19/17 16:00 64 04/19/17 15:58 65 87/56 98 Nasal Cannula 2.0 04/19/17 15:53 126/70 04/19/17 15:53 76 126/70 98 Nasal Cannula 2.0 04/19/17 15:47 62 118/75 98 Nasal Cannula 2.0 04/19/17 15:47 118/75 Intake and Output 04/20/17 04/21/17 19:00 07:00 # Bowel Movements 1 Laboratory Tests 04/20/17 04:40: White Blood Count 5.3, Red Blood Count 4.58L, Hemoglobin 14.3, Hematocrit 43.1, Mean Corpuscular Volume 94, Mean Corpuscular Hemoglobin 31.3H, Mean Corpuscular Hemoglobin Concent 33.3, Red Cell Distribution Width 13.1, Platelet Count 306, Mean Platelet Volume 6.3L, Neutrophils (%) (Auto) 55.7, Lymphocytes (%) (Auto) 26.4, Monocytes (%) (Auto) 11.2H, Eosinophils (%) (Auto) 5.5H, Basophils (%) ( Auto) 1.2, Sodium Level 137, Potassium Level 4.7, Chloride Level 102, Carbon Dioxide Level 32, Anion Gap 3L, Blood Urea Nitrogen 20H, Creatinine 1.0, Estimat Glomerular Filtration Rate > 60, Glucose Level 100, Calcium Level 9.2 Height (Feet): 5 Height (Inches): 8.00 Weight (Pounds): 150 Objective HEAD AND NECK: No JVP. No LAD. No thyromegaly. HEENT: Extraocular movements intact. Pupils are reactive to light and accommodation. LUNGS: Clear to auscultation. CARDIAC: Regular rate and rhythm. S1 and S2. No murmur. No rub. ABDOMEN: Soft, nontender, and nondistended. EXTREMITIES: Trace edema. No clubbing. No cyanosis ISIDRA CARLOS Apr 20, 2017 14:24
--- NOTE | 2017-04-20 15:13 | General Progress Note ---
Assessment/Plan Problem List: (1) COPD (chronic obstructive pulmonary disease) ICD Codes: J44.9 - Chronic obstructive pulmonary disease, unspecified SNOMED: 83743017 (2) CAD (coronary artery disease) ICD Codes: I25.10 - Atherosclerotic heart disease of [place] coronary artery without angina pectoris SNOMED: 45024682 (3) Chest pain ICD Codes: R07.9 - Chest pain, unspecified SNOMED: 03910543 (4) ACS (acute coronary syndrome) ICD Codes: I24.9 - Acute ischemic heart disease, unspecified SNOMED: 296681697 Status: stable, progressing, tolerating diet Assessment/Plan ot pt diet cbc bmp am possible cardio transfer for cath Subjective Constitutional: Reports: weakness Allergies: Coded Allergies: PENICILLINS (Verified Allergy, Unknown, 04/16/17) TRAMADOL (Verified Allergy, Unknown, 04/16/17) All Systems: reviewed and negative except above Subjective sl chest pain in bed Objective Last 24 Hour Vital Signs Date Time Temp Pulse Resp B/P (MAP) Pulse Ox O2 Delivery O2 Flow Rate FiO2 04/20/17 12:00 55 04/20/17 12:00 97.0 52 21 98/62 98 Room Air 04/20/17 09:00 57 101/59 04/20/17 09:00 57 101/59 04/20/17 08:47 Nasal Cannula 2.0 28 04/20/17 08:47 98 Nasal Cannula 2.0 28 04/20/17 08:47 57 16 Nasal Cannula 2.0 28 04/20/17 08:00 57 04/20/17 08:00 97.2 56 20 101/59 99 Room Air 04/20/17 04:51 55 04/20/17 04:15 94.6 55 18 126/67 98 Room Air 04/20/17 00:31 96.6 59 18 138/67 99 Room Air 04/19/17 23:47 55 04/19/17 20:27 98.2 65 18 102/59 98 Room Air 04/19/17 19:53 63 04/19/17 19:30 72 18 Room Air 21 04/19/17 17:30 65 20 107/63 98 Nasal Cannula 2.0 04/19/17 16:30 63 101/59 98 Nasal Cannula 2.0 04/19/17 16:25 69 20 99 Nasal Cannula 2.0 28 04/19/17 16:20 76 20 97 Nasal Cannula 2.0 28 04/19/17 16:00 65 88/59 98 Nasal Cannula 2.0 04/19/17 16:00 64 04/19/17 15:58 65 87/56 98 Nasal Cannula 2.0 04/19/17 15:53 126/70 04/19/17 15:53 76 126/70 98 Nasal Cannula 2.0 04/19/17 15:47 62 118/75 98 Nasal Cannula 2.0 04/19/17 15:47 118/75 Intake and Output 04/20/17 04/21/17 19:00 07:00 # Bowel Movements 1 Laboratory Tests 04/20/17 04:40: White Blood Count 5.3, Red Blood Count 4.58L, Hemoglobin 14.3, Hematocrit 43.1, Mean Corpuscular Volume 94, Mean Corpuscular Hemoglobin 31.3H, Mean Corpuscular Hemoglobin Concent 33.3, Red Cell Distribution Width 13.1, Platelet Count 306, Mean Platelet Volume 6.3L, Neutrophils (%) (Auto) 55.7, Lymphocytes (%) (Auto) 26.4, Monocytes (%) (Auto) 11.2H, Eosinophils (%) (Auto) 5.5H, Basophils (%) ( Auto) 1.2, Sodium Level 137, Potassium Level 4.7, Chloride Level 102, Carbon Dioxide Level 32, Anion Gap 3L, Blood Urea Nitrogen 20H, Creatinine 1.0, Estimat Glomerular Filtration Rate > 60, Glucose Level 100, Calcium Level 9.2 Height (Feet): 5 Height (Inches): 8.00 Weight (Pounds): 150 General Appearance: alert EENT: normal ENT inspection Neck: non-tender, normal alignment, supple Cardiovascular: normal peripheral pulses, normal rate, regular rhythm Respiratory/Chest: chest wall non-tender, lungs clear, normal breath sounds Abdomen: normal bowel sounds, non tender, soft Extremities: normal inspection Edema: no edema noted Arm (L), no edema noted Arm (R), no edema noted Leg (L), no edema noted Leg (R), no edema noted Pedal (L), no edema noted Pedal (R), no edema noted Generalized Neurologic: responsive, motor weakness Skin: normal pigmentation, warm/dry MAGDA BELLO Apr 20, 2017 15:13
[2017-04-20 16:00] VITALS: BP 115/70
[2017-04-20] MEDS ORDERED: NS 500ML ONE (17:34)
--- NOTE | 2017-04-20 23:34 | Cardiology Progress Note ---
Assessment/Plan Assessment/Plan 1. Acute coronary syndrome. Chest pain is typical for ischemia, he ought to be undergoing left heart catheterization, coronary angiography is being scheduled in a hospital with [facility] amenities. Continue ASA, plavix, metoprolol and statins in the meantime. 2. History of coronary artery disease, status post multiple coronary artery interventions. 3. History of chronic obstructive pulmonary disease. Subjective Subjective Sinus rhythm at 60. Continues to have chest pain. Transfer to [facility] is in process. Objective Last 24 Hour Vital Signs Date Time Temp Pulse Resp B/P (MAP) Pulse Ox O2 Delivery O2 Flow Rate FiO2 04/20/17 16:00 69 04/20/17 16:00 97.5 65 20 115/70 96 Room Air 04/20/17 12:00 55 04/20/17 12:00 97.0 52 21 98/62 98 Room Air 04/20/17 09:00 57 101/59 04/20/17 09:00 57 101/59 04/20/17 08:47 Nasal Cannula 2.0 28 04/20/17 08:47 98 Nasal Cannula 2.0 28 04/20/17 08:47 57 16 Nasal Cannula 2.0 28 04/20/17 08:00 57 04/20/17 08:00 97.2 56 20 101/59 99 Room Air 04/20/17 04:51 55 04/20/17 04:15 94.6 55 18 126/67 98 Room Air 04/20/17 00:31 96.6 59 18 138/67 99 Room Air 04/19/17 23:47 55 Intake and Output 04/20/17 04/21/17 19:00 07:00 # Bowel Movements 1 2D Echo: LVEF 55-60%, Moderate AR, grade I LVDD Laboratory Tests Test 04/20/17 04:40 White Blood Count 5.3 K/UL (4.8-10.8) Red Blood Count 4.58 M/UL (4.70-6.10) L Hemoglobin 14.3 G/DL (14.2-18.0) Hematocrit 43.1 % (42.0-52.0) Mean Corpuscular Volume 94 FL (80-99) Mean Corpuscular Hemoglobin 31.3 PG (27.0-31.0) H Mean Corpuscular Hemoglobin Concent 33.3 G/DL (32.0-36.0) Red Cell Distribution Width 13.1 % (11.6-14.8) Platelet Count 306 K/UL (150-450) Mean Platelet Volume 6.3 FL (6.5-10.1) L Neutrophils (%) (Auto) 55.7 % (45.0-75.0) Lymphocytes (%) (Auto) 26.4 % (20.0-45.0) Monocytes (%) (Auto) 11.2 % (1.0-10.0) H Eosinophils (%) (Auto) 5.5 % (0.0-3.0) H Basophils (%) (Auto) 1.2 % (0.0-2.0) Sodium Level 137 MMOL/L (136-145) Potassium Level 4.7 MMOL/L (3.5-5.1) Chloride Level 102 MMOL/L (98-107) Carbon Dioxide Level 32 MMOL/L (21-32) Anion Gap 3 mmol/L (5-15) L Blood Urea Nitrogen 20 mg/dL (7-18) H Creatinine 1.0 MG/DL (0.55-1.30) Estimat Glomerular Filtration Rate > 60 mL/min (>60) Glucose Level 100 MG/DL (74-106) Calcium Level 9.2 MG/DL (8.5-10.1) Objective GENERAL: The patient is a very unfortunate 62-year-old gentleman, in no apparent respiratory distress. Alert and oriented x4. HEENT: Atraumatic and normocephalic. Anicteric. Pupils are equal, round, and reactive to light and accommodation. Extraocular muscles intact. NECK: JVP is about 8 to 10 cm. No carotid bruits. Carotid upstrokes 2+ bilaterally. CARDIOVASCULAR: Distant S1, S2. I do not appreciate any murmurs, gallops, or rubs. PMI is at fourth intercostal space in the midclavicular line. LUNGS: Diminished breath sounds in both lungs. ABDOMEN: Soft, nontender, and nondistended. No hepatosplenomegaly. Positive bowel sounds. EXTREMITIES: No evidence of edema, clubbing, or cyanosis. RUBEN VEGA Apr 20, 2017 23:34
--- NOTE | 2017-04-21 16:56 | Cardiology Report ---
APPROVED REPORT EKG Measurement Heart [id number] Normal sinus rhythm Normal ECG
--- NOTE | 2017-04-22 14:07 | Discharge Summary ---
Discharge Summary Hospital Course Date of Admission Apr 16, 2017 at 22:11 Date of Discharge Apr 20, 2017 at 17:35 Admitting Diagnosis chest pain, acs HPI Cong Ugalde is a 61 year old male who was admitted on Apr 16, 2017 at 22: 11 for Chest Pain, Acute Coronary Syndrome Hospital Course [id number] Discharge Discharge Disposition Patient was discharged to going to [facility] for [facility] catheterization Discharge Diagnoses: Betty Cross NP Apr 22, 2017 14:07
--- NOTE | 2017-04-22 21:15 | Discharge Summary 2 SIG ---
DATE OF ADMISSION: 04/16/2017 DATE OF DISCHARGE: 04/20/2017 CONSULTANTS: 1. Tony Clarke M.D. 2. Flavia Simeon M.D. 3. Bridgett Alonso M.D. BRIEF HOSPITAL COURSE: The patient is a 61-year-old male with extensive history of coronary artery disease status post multiple percutaneous coronary interventions including one that occurred two months ago apparently in a [place] vessel, while visiting his daughter in [place], presented to the ED complaining of chest pain. Chest pain occurred about a week prior to admission and at that time, he was taken to [facility] where he underwent a stress test, which was apparently negative and was discharged home. He presented with pressure-like pain in the left precordial area with radiation to the left arm and to the left side of the neck. He was given aspirin and nitroglycerin by paramedics. On evaluation at ED, EKG showed normal sinus rhythm with multiple PACs. He was given Plavix. He has multiple risk factors for cardiac disease including smoking and prior coronary artery disease. He was then admitted to telemetry for cardiac evaluation. He came in with hyponatremia, sodium of 134. He was placed on free water restriction. Blood pressure was elevated and was given amlodipine and metoprolol. Statin was optimized. He was given Lipitor 80 mg daily and was placed on dual antiplatelet therapy with aspirin and Plavix. He continued to have chest pain and needed higher level of care. He was eventually transferred to [facility] for a cardiac catheterization. FINAL DIAGNOSES: 1. Acute coronary syndrome. 2. Coronary artery disease status post multiple coronary artery interventions. 3. Chronic obstructive pulmonary disease. 4. Mild hyponatremia. 5. Uncontrolled hypertension. DISPOSITION: The patient was transferred to [facility] for a cardiac catheterization. Zackary Corona D.O. I have been assigned to dictate discharge summary on this account and I was not involved in the patient's management. Betty Cross N.P. DR: DELICIA JOB#: [id number] CC:
--- NOTE | 2017-04-25 16:09 | Cardiology Report ---
APPROVED REPORT EKG Measurement Heart [id number] Sinus rhythm with premature supraventricular complexes Otherwise normal ECG
--- NOTE | 2017-04-25 16:09 | Cardiology Report ---
APPROVED REPORT EKG Measurement Heart [id number] RI [id number] Sinus rhythm with premature atrial complexes Otherwise normal ECG
--- NOTE | 2017-04-26 10:48 | Cardiology Report ---
APPROVED REPORT EXAM: Two-dimensional and M-mode echocardiogram with Doppler and color Doppler. INDICATION Left ventricular function M-Mode DIMENSIONS IVSd0.8 (0.7-1.1cm)Left Atrium (MM)3.8 (1.6-4.0cm) LVDd5.3 (3.5-5.6cm)Aortic Root3.5 (2.0-3.7cm) PWd1.0 (0.7-1.1cm)Aortic Cusp Exc.2.0 (1.5-2.0cm) LVDs3.9 (2.5-4.0cm) PWs1.2 cm Technically difficult study due to poor acoustical windows. Normal left ventricular chamber size, systolic function and wall motion. Left ventricular ejection fraction estimated to be 55-60 %. No evidence of left ventricular hypertrophy. No evidence of pericardial or pleural effusion. All other cardiac chamber sizes are within normal limits. Focal aortic valve sclerosis with adequate cusp excursion. Thickened mitral valve leaflets with normal excursion. Mild mitral annulus and aortic root calcification. Pulmonic valve not well visualized. Normal tricuspid valve structure. IVC is normal in size and collapsible with respiration. A color flow and spectral Doppler study was performed and revealed: Moderate aortic regurgitation. No mitral regurgitation. Mitral diastolic velocities suggest reduced left ventricular relaxation c/w diastolic dysfunction grade 1. Trace tricuspid regurgitation.
== END 2017-04-20 17:35 | disposition short-term general hospital (02) | DRG 303 ==
LOC: EDBD 19:51 → EMR 20:11 → 2E 22:11 → EDBEDREQ 22:49
DX: I25.119 Atherosclerotic heart disease of native coronary artery with unspecified angina pectoris (principal); I24.9 Acute ischemic heart disease, unspecified; E87.1 Hypo-osmolality and hyponatremia; Z86.74 Personal history of sudden cardiac arrest; J44.9 Chronic obstructive pulmonary disease, unspecified; Z95.5 Presence of coronary angioplasty implant and graft; Z88.6 Allergy status to analgesic agent; Z88.0 Allergy status to penicillin; D64.9 Anemia, unspecified; I10 Essential (primary) hypertension; F17.200 Nicotine dependence, unspecified, uncomplicated; Z79.02 Long term (current) use of antithrombotics/antiplatelets
CPT/HCPCS: 36415; 71010; 80048; 80053; 80061; 81001; 82550; 82553; 83880; 84443; 84484; 85025; 85379; 85610; 85730; 86140; 87081; 90630; 90732; 93005; 93306; 94640; 94664; 94760; 99285; J7620